=== PATIENT | female | born 1960 | race American Indian/Alaskan Native ===

== ENCOUNTER 2016-10-28 07:41 | Emergency (ER) | payer OTHER ==
[2016-10-28 07:42] VITALS: BMI 30.4
[2016-10-28 07:54] VITALS: BP 169/118; PULSE 111; TEMP 98.6
[2016-10-28] MEDS ORDERED: Albuterol-Ipratrop 3 mg / 0.5 (3 ml) UD ONE (07:55)
[2016-10-28] MEDS ORDERED: Albuterol-Ipratrop 3 mg / 0.5 (3 ml) UD INH STA (08:09)
[2016-10-28] MEDS ORDERED: Sodium Chloride 0.9% 500 ML IV STA (08:09)
[2016-10-28] MEDS ORDERED: Albuterol-Ipratrop 3 mg / 0.5 (3 ml) UD IH STA ×2 (08:09→08:10)
--- NOTE | 2016-10-28 08:12 | ED PDOC ---
HPI: SOB/CHF/COPD Time Seen by Provider: 10/28/16 08:00 Chief Complaint (Nursing): Shortness Of Breath Chief Complaint (Provider): wheezes History Per: Patient History/Exam Limitations: no limitations Onset/Duration Of Symptoms: Days (3) Current Symptoms Are (Timing): Still Present Additional Complaint(s): Wheezes, cough, runny nose, nasal congestion. No headaches. Has bodyaches. Chest tightness, like her asthma. Feels same as her asthma flare. No nausea, vomit, diarrhea, weakness. No dizziness. Neb at home . No abd pain. Past Medical History Reviewed: Nursing Documentation, Vital Signs Vital Signs: Last Vital Signs Temp 98.6 F 10/28/16 08:07 Pulse 111 H 10/28/16 08:07 Resp 24 10/28/16 08:13 BP 169/118 H 10/28/16 08:07 Pulse Ox 95 10/28/16 10:26 - Medical History PMH: Arthritis, Asthma, CAD, HTN Denies: HIV, Chronic Kidney Disease, Rheumatoid Arthritis - Surgical History Surgical History: Tonsillectomy - Family History Family History: States: Unknown Family Hx - Social History Current smoker - smoking cessation education provided: No Alcohol: None Drugs: Denies - Home Medications Home Medications: Ambulatory Orders Medication Instructions Recorded Famotidine [Pepcid] 20 mg PO BID #0 tab 02/21/16 Metoprolol Succinate [Toprol XL] 100 mg PO DAILY #0 tab 02/21/16 Aspirin [Ecotrin] 81 mg PO BID #1 tabec 03/02/16 Docusate [Colace] 100 mg PO BID cap 03/02/16 Valsartan [Diovan] 320 mg PO DAILY #1 tab 03/02/16 hydroCHLOROthiazide [Microzide] 12.5 mg PO DAILY #1 cap 03/02/16 Albuterol Sulfate [Proair Hfa] 0.09 mg IH Q6H PRN #2 inh 10/28/16 Azithromycin [Zithromax] 250 mg PO DAILY 5 Days 10/28/16 predniSONE [predniSONE Tab] 20 mg PO BID 5 Days 10/28/16 - Allergies Allergies/Adverse Reactions: Allergies Allergy/AdvReac Type Severity Reaction Status Date / Time No Known Allergies Allergy Verified 10/28/16 08:04 Review of Systems ROS Statement: Except As Marked, All Systems Reviewed And Found Negative ENT: Positive for: Nose Congestion Respiratory: Positive for: Cough, Shortness of Breath, Sputum, Wheezing Musculoskeletal: Positive for: Other (bodyaches) Physical Exam - Reviewed Nursing Documentation Reviewed: Yes Vital Signs Reviewed: Yes - Physical Exam Appears: Positive for: Uncomfortable Head Exam: Positive for: ATRAUMATIC, NORMAL INSPECTION, NORMOCEPHALIC Skin: Positive for: Normal Color, Warm, DRY Eye Exam: Positive for: EOMI, Normal appearance, PERRL ENT: Positive for: Nasal Congestion. Negative for: Pharyngeal Erythema, Tonsillar Exudate Neck: Positive for: Normal, Painless ROM, Supple Cardiovascular/Chest: Positive for: Regular Rate, Rhythm. Negative for: Edema Respiratory: Positive for: Decreased Breath Sounds, Wheezing (b/l) Gastrointestinal/Abdominal: Positive for: Normal Exam, Bowel Sounds, Soft. Negative for: Tenderness Back: Positive for: Normal Inspection. Negative for: L CVA Tenderness, R CVA Tenderness Extremity: Positive for: Normal ROM. Negative for: Tenderness, Pedal Edema Neurologic/Psych: Positive for: Alert, Oriented - Laboratory Results Result Diagrams: 10/28/16 08:18 10/28/16 08:18 Interpretation Of Abn Labs: 356 glucose. 2.4 lactate - ECG ECG: Positive for: Interpreted By Me, Viewed By Me ECG Rhythm: Positive for: Normal QRS, Normal ST Segment, Sinus Rhythm O2 Sat by Pulse Oximetry: 95 Pulse Ox Interpretation: Normal - Radiology X-Ray: Interpreted by Me, Viewed By Me X-Ray Interpretation: No Acute Disease - Progress ED Course And Treament: 1218: Feels much better. Does not want to stay in the hospital. Will dc. Advised to return if any dyspnea returns. Glucose elevated and likely cause of lactate elevation. AAOx3. Ambulating with no issues. Tolerated po. Disposition - Clinical Impression Clinical Impression: Bronchitis, Asthma, Hyperglycemia - Patient ED Disposition Is Patient to be Admitted: No Counseled Patient/Family Regarding: Studies Performed, Diagnosis, Need For Followup, Rx Given - Disposition Referrals: [facility] [Outside] - 10/29/16 Disposition: Routine/Home Disposition Time: 12:20 Condition: STABLE Additional Instructions: Return if not better in 3 days. Prescriptions: Albuterol Sulfate [Proair Hfa] 0.09 mg IH Q6H PRN #2 inh PRN Reason: Wheezing Azithromycin [Zithromax] 250 mg PO DAILY 5 Days predniSONE [predniSONE Tab] 20 mg PO BID 5 Days Instructions: Acute Bronchitis (ED), Asthma (ED), Diabetic Hyperglycemia (ED) Forms: [facility] ED School/Work Excuse
[2016-10-28 08:15] VITALS: RESP 24
[2016-10-28 08:28] LABS: BASO % 1.1 % (0.0-2.0); EOS # 0.2 K/uL (0.0-0.7); EOS % 5.5 % (0.0-4.0); HEMATOCRIT 43.1 % (34.0-47.0); LYMPH # 1.3 K/uL (1.0-4.3); LYMPH % 30.7 % (20.0-40.0); MEAN CELL VOLUME 92.9 fl (81.0-99.0); MEAN CORPUSCULAR HEMOGLOBIN 30.9 pg (27.0-31.0); MEAN CORPUSCULAR HGB CONC 33.2 g/dL (33.0-37.0); MEAN PLATELET VOLUME 10.4 fl (7.2-11.7); MONO # 0.3 K/uL (0.0-0.8); MONO % 7.1 % (0.0-10.0); NEUT # 2.4 K/uL (1.8-7.0); NEUT % 55.6 % (50.0-75.0); RED CELL DISTRIBUTION WIDTH 14.5 % (11.5-14.5); WHITE BLOOD COUNT 4.4 K/uL (4.8-10.8)
[2016-10-28 08:29] LABS: ABG ALLEN TEST YES; ARTERIAL BLOOD GAS HCO3 26.2 mmol/L (21-28); ARTERIAL BLOOD GAS PH 7.44 (7.35-7.45); ARTERIAL BLOOD GAS PO2 72 mm/Hg (80-100)
[2016-10-28 08:58] LABS: ALB/GLOB RATIO 1.3 (1.0-2.1); ALKALINE PHOSPHATASE 103 U/L (38-126); ALT/SGPT 42 U/L (9-52); AST/SGOT 28 U/L (14-36); BILIRUBIN,TOTAL 0.7 mg/dl (0.2-1.3); BLOOD UREA NITROGEN 18 mg/dl (7-17); CALCIUM 9.6 mg/dL (8.4-10.2); CARBON DIOXIDE 25 mmol/L (22-30); CHLORIDE 102 mmol/L (98-107); GFR AFRICAN-AMERICAN > 60; GLUCOSE,RANDOM 356 mg/dL (65-105); POTASSIUM 3.5 MMOL/L (3.6-5.0); SODIUM 141 mmol/l (132-148); TOTAL PROTEIN 7.4 G/DL (6.3-8.2)
[2016-10-28 09:12] LABS: PARTIAL THROMBOPLASTIN TIME 27.4 SECONDS (23.3-32.5)
[2016-10-28] MEDS ORDERED: Sodium Chloride 0.9% 1,000 ML IV STA (10:18)
[2016-10-28 13:06] VITALS: O2SAT 99
--- NOTE | 2016-10-29 08:36 | CARD ---
APPROVED REPORT EKG Measurement Heart [id number] <Conclusion> Sinus rhythm with fusion complexes Left axis deviation Moderate voltage criteria for LVH, may be normal variant Nonspecific ST abnormality Abnormal ECG
--- NOTE | 2016-11-26 17:30 | RAD ---
PROCEDURE: Single-view chest. HISTORY: dyspnea COMPARISON: 02/10/2016.. TECHNIQUE: Technique: Single view portable erect @ 08:15. FINDINGS: No active pulmonary disease. No pulmonary nodules, masses or infiltrates. No evidence of acute, significant cardiovascular disease. No significant pleural, osseous or subdiaphragmatic abnormalities. IMPRESSION: No active disease. No acute/significant interval changes.
== END 2016-10-28 13:06 | disposition home or self-care (01) ==
LOC: H.ER 07:41
DX: J45.909 Unspecified asthma, uncomplicated (principal); R73.9 Hyperglycemia, unspecified; I25.10 Atherosclerotic heart disease of native coronary artery without angina pectoris; I10 Essential (primary) hypertension; Z79.82 Long term (current) use of aspirin

== ENCOUNTER 2017-09-26 06:30 | Inpatient (IN) | payer OTHER ==
[2017-09-26 06:31] VITALS: BMI 30.4
--- NOTE | 2017-09-26 07:42 | ED PDOC ---
HPI: Chest Pain Time Seen by Provider: 09/26/17 07:14 Chief Complaint (Nursing): Chest Pain Chief Complaint (Provider): Chest Pain History Per: Patient History/Exam Limitations: no limitations Current Symptoms Are (Timing): Still Present Associated Symptoms: Other (Shortness of breath) Additional Complaint(s): 57 y/o female with past medical history of asthma presents to the ED complaining of mid chest pain associated with shortness of breath x 3 hours. Reports mild cough as she is recovering from bronchitis. Denies fever or any further medical complaints. --No family history of CAD --No history or risk factors for PE or DVT Past Medical History Vital Signs: Last Vital Signs Temp 97.8 F 09/26/17 06:40 Pulse 57 L 09/26/17 06:40 Resp 17 09/26/17 06:40 BP 165/91 H 09/26/17 06:40 Pulse Ox 98 09/26/17 10:38 - Medical History PMH: Arthritis, Asthma, Bronchitis, CAD, HTN Denies: HIV, Chronic Kidney Disease, Rheumatoid Arthritis Other PMH: osteoarthritis - Surgical History Surgical History: Tonsillectomy Other surgeries: Knee surgery - Family History Family History: States: Unknown Family Hx - Social History Current smoker - smoking cessation education provided: No Alcohol: Social Drugs: Denies - Home Medications Home Medications: Ambulatory Orders Medication Instructions Recorded Famotidine [Pepcid] 20 mg PO BID #0 tab 02/21/16 Metoprolol Succinate [Toprol XL] 100 mg PO DAILY #0 tab 02/21/16 Aspirin [Ecotrin] 81 mg PO BID #1 tabec 03/02/16 Docusate [Colace] 100 mg PO BID cap 03/02/16 Valsartan [Diovan] 320 mg PO DAILY #1 tab 03/02/16 hydroCHLOROthiazide [Microzide] 12.5 mg PO DAILY #1 cap 03/02/16 Albuterol Sulfate [Proair Hfa] 0.09 mg IH Q6H PRN #2 inh 10/28/16 Azithromycin [Zithromax] 250 mg PO DAILY 5 Days tab 10/28/16 predniSONE [predniSONE Tab] 20 mg PO BID 5 Days tab 10/28/16 - Allergies Allergies/Adverse Reactions: Allergies Allergy/AdvReac Type Severity Reaction Status Date / Time No Known Allergies Allergy Verified 10/28/16 08:04 Review of Systems ROS Statement: Except As Marked, All Systems Reviewed And Found Negative (A sper HPI,otherwise negative) Constitutional: Negative for: Fever Cardiovascular: Positive for: Chest Pain Respiratory: Positive for: Shortness of Breath Physical Exam - Reviewed Nursing Documentation Reviewed: Yes Vital Signs Reviewed: Yes - Physical Exam Appears: Positive for: Non-toxic, Uncomfortable (Mildly uncomfortable) Head Exam: Positive for: ATRAUMATIC, NORMAL INSPECTION, NORMOCEPHALIC Skin: Positive for: Normal Color, Warm, Dry Eye Exam: Positive for: EOMI, Normal appearance, PERRL ENT: Positive for: Normal ENT Inspection Neck: Positive for: Normal, Painless ROM, Supple Cardiovascular/Chest: Positive for: Regular Rate, Rhythm. Negative for: Murmur Respiratory: Positive for: Normal Breath Sounds. Negative for: Accessory Muscle Use, Respiratory Distress Gastrointestinal/Abdominal: Positive for: Normal Exam, Bowel Sounds, Soft. Negative for: Tenderness Back: Positive for: Normal Inspection Extremity: Positive for: Normal ROM. Negative for: Deformity Neurologic/Psych: Positive for: Alert, Oriented (x3) - Laboratory Results Result Diagrams: 09/26/17 08:51 09/26/17 08:51 - ECG ECG Rhythm: Positive for: Sinus Rhythm (Normal Sinus Rhythm ar 90bpm). Negative for: ST/T Changes (ST/T elevations or depressions) O2 Sat by Pulse Oximetry: 98 (RA) Pulse Ox Interpretation: Normal Medical Decision Making Medical Decision Making: Time: 07:44 Initial Impression: Chest pain Plan: CMP Troponin I CBC w/ differential Chest x-ray Reevalaution Time: 09:30 Chest x-ray FINDINGS: LUNGS: No active pulmonary disease. PLEURA: No significant pleural effusion identified, no pneumothorax apparent. CARDIOVASCULAR: Borderline cardiomegaly stable. No pulmonary derangement identified. Cardiac silhouette limited in evaluation due to from finding. OSSEOUS STRUCTURES: No significant abnormalities. VISUALIZED UPPER ABDOMEN: Normal. OTHER FINDINGS: None. IMPRESSION: No acute interval cardiopulmonary disease appreciable. Time: 09:45 --Patient was administered Nitro and Aspirin but still has pain --Patient connie be admitted to Dr. Lara --Dr. Lara has agreed to the admission and has a consult from cardiology Scribe Attestation: Documented by Dawood Beaver acting as a scribe for Ely Garcia MD. Scribe Attestation: All medical record entries made by the Scribe were at my direction and personally dictated by me. I have reviewed the chart and agree that the record accurately reflects my personal performance of the history, physical exam, medical decision making, and the department course for this patient. I have also personally directed, reviewed, and agree with the discharge instructions and disposition. Disposition - Disposition
[2017-09-26 09:03] LABS: BASO % 0.8 % (0.0-2.0); EOS # 0.2 K/uL (0.0-0.7); HEMOGLOBIN 14.6 g/dL (12.0-16.0); LYMPH # 1.8 K/uL (1.0-4.3); LYMPH % 35.6 % (20.0-40.0); MEAN CELL VOLUME 91.9 fl (81.0-99.0); MEAN CORPUSCULAR HEMOGLOBIN 31.5 pg (27.0-31.0); MEAN CORPUSCULAR HGB CONC 34.2 g/dL (33.0-37.0); MEAN PLATELET VOLUME 10.5 fl (7.2-11.7); MONO # 0.4 K/uL (0.0-0.8); MONO % 8.1 % (0.0-10.0); NEUT # 2.6 K/uL (1.8-7.0); NEUT % 51.5 % (50.0-75.0); NRBC % 0.1 % (0.0-0.0); RBC 4.63 Mil/uL (3.80-5.20); RED CELL DISTRIBUTION WIDTH 14.1 % (11.5-14.5); WHITE BLOOD COUNT 5.1 K/uL (4.8-10.8)
[2017-09-26 09:07] LABS: ALB/GLOB RATIO 1.3 (1.0-2.1); ALBUMIN 4.4 g/dL (3.5-5.0); ALT/SGPT 36 U/L (9-52); AST/SGOT 22 U/L (14-36); BLOOD UREA NITROGEN 17 mg/dl (7-17); GFR AFRICAN-AMERICAN > 60; GFR NON-AFRICAN AMERICAN > 60
--- NOTE | 2017-09-26 09:32 | RAD ---
HISTORY: cp COMPARISON: Portable chest 10/28/2016. FINDINGS: LUNGS: No active pulmonary disease. PLEURA: No significant pleural effusion identified, no pneumothorax apparent. CARDIOVASCULAR: Borderline cardiomegaly stable. No pulmonary derangement identified. Cardiac silhouette limited in evaluation due to from finding. OSSEOUS STRUCTURES: No significant abnormalities. VISUALIZED UPPER ABDOMEN: Normal. OTHER FINDINGS: None. IMPRESSION: No acute interval cardiopulmonary disease appreciable.
--- NOTE | 2017-09-26 23:55 | CARD ---
APPROVED REPORT EKG Measurement Heart [id number] <Conclusion> Sinus bradycardia Moderate voltage criteria for LVH, may be normal variant Borderline ECG
--- NOTE | 2017-09-27 01:40 | CON ---
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 She also has a history of bronchitis, present because of chest pain, this is left-sided, sharp, worsening on deep breathing, and is associated with chest tightness. The patient was evaluated by Dr. 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 The patient has a history of bilateral total knee replacement in 2014 and 2015. She did have bilateral foot surgery involving bunions. The patient denies any history of DVT in the past. The patient at this time has some severe chest discomfort. SOCIAL HISTORY: The patient is nonsmoker. 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 MEDICATIONS: The patient's home medications include metformin 500 mg twice a day, Diovan and hydrochlorothiazide 320/25 mg once a day, Januvia 100 mg daily, and Lopressor 100 mg daily. REVIEW OF SYSTEMS: No fever or chills. No dizziness or syncope. No nausea or vomiting. PHYSICAL EXAMINATION: GENERAL: The patient is a middle-age female who does not appear to be in any acute distress. VITAL SIGNS: Blood pressure 165/91, heart rate 57, temperature 97.8, and respirations 17. HEENT: Normocephalic. NECK: No JVD. CHEST: Clear. HEART: S1 and S2 regular. ABDOMEN: Soft. EXTREMITIES: No edema. DIAGNOSTIC DATA: EKG revealed sinus bradycardia at a rate of 57, LVH by voltage. LABORATORY DATA: SMA-7: Sodium 143, potassium 4.3, chloride 101, CO2 of 29, glucose 176, BUN 17, and creatinine 0.7. One set of troponin is negative. CBC; WBC 5.1, hemoglobin 14.6, hematocrit 42.5, and platelet count 216,000. Chest x-ray was unremarkable. ASSESSMENT: 1. Chest pain, rule out myocardial infarction. 2. Rule out pulmonary infarction. 3. Hypertension. 4. Diabetes mellitus. 5. History of bilateral total knee replacement in 2014 and 2015. RECOMMENDATIONS: Admit the patient to telemetry and start aspirin at 81 mg once a day, and Lipitor 20 mg orally once a day. Monitor daily EKGs and serial cardiac enzyme, obtain stat d-dimer, and schedule the patient for an echocardiogram. Goldy Drew MD
[2017-09-27 05:51] LABS: INR 1.1 (0.9-1.2); PARTIAL THROMBOPLASTIN TIME 31.4 Seconds (25.6-37.1)
[2017-09-27 06:03] LABS: ALB/GLOB RATIO 1.3 (1.0-2.1); ALT/SGPT 35 U/L (9-52); AST/SGOT 16 U/L (14-36); BLOOD UREA NITROGEN 18 mg/dl (7-17); CALCIUM 9.6 mg/dL (8.4-10.2); GFR AFRICAN-AMERICAN > 60; GFR NON-AFRICAN AMERICAN > 60; HDL CHOLESTEROL 50 MG/DL (30-70)
[2017-09-27 06:09] LABS: LDL CHOLESTEROL 50 mg/dL (0-129)
[2017-09-27 06:16] LABS: BASO % 0.8 % (0.0-2.0); EOS # 0.2 K/uL (0.0-0.7); EOS % 3.8 % (0.0-4.0); HEMOGLOBIN 14.9 g/dL (12.0-16.0); LYMPH # 1.8 K/uL (1.0-4.3); LYMPH % 39.2 % (20.0-40.0); MEAN CELL VOLUME 93.5 fl (81.0-99.0); MEAN CORPUSCULAR HEMOGLOBIN 31.8 pg (27.0-31.0); MEAN PLATELET VOLUME 10.1 fl (7.2-11.7); MONO # 0.4 K/uL (0.0-0.8); MONO % 8.9 % (0.0-10.0); NEUT # 2.1 K/uL (1.8-7.0); NEUT % 47.3 % (50.0-75.0); NRBC % 0.2 % (0.0-0.0); RBC 4.67 Mil/uL (3.80-5.20); RED CELL DISTRIBUTION WIDTH 14.6 % (11.5-14.5); T4 7.81 ug/dl (5.5-11.0); WHITE BLOOD COUNT 4.5 K/uL (4.8-10.8)
[2017-09-27 06:42] LABS: SQUAMOUS EPITHIAL 1 /hpf (0-5); URINE BILIRUBIN NEGATIVE (NEGATIVE); URINE BLOOD NEGATIVE (NEGATIVE); URINE CLARITY CLEAR (Clear); URINE COLOR YELLOW (YELLOW); URINE GLUCOSE (UA) >=500 mg/dL (Normal); URINE LEUKOCYTE ESTERASE NEG Leu/uL (Negative); URINE PROTEIN NEGATIVE (NEGATIVE); URINE UROBILINOGEN 0.2-1.0 mg/dL (0.2-1.0)
[2017-09-27] MEDS ORDERED: Enoxaparin 80 mg Syringe SC SCH (09:00)
--- NOTE | 2017-09-27 10:38 | US ---
PROCEDURE: Duplex ultrasound of the carotid and vertebral arteries. HISTORY: chest pain COMPARISON: None available. TECHNIQUE: Grayscale and duplex Doppler evaluation of the cervical carotid and vertebral arteries were performed. The common carotid, carotid bifurcations and cervical ICA and proximal ECA were evaluated. The vertebral arteries were evaluated for gross patency and direction. FINDINGS: RIGHT CAROTID ARTERIES: Common Carotid Artery: Normal. Maximal flow velocity of 59 cm/s. Carotid Bifurcation: Mild noncalcific plaque. Internal Carotid Artery:Normal. Maximal flow velocity of 81 cm/s. External Carotid Artery (proximal branches): Normal. Maximal flow velocity of 62 cm/s. ICA/CCA Ratio: 1.4 LEFT CAROTID ARTERIES: Common Carotid Artery: Normal. Maximal flow velocity of 67 cm/s. Carotid Bifurcation: Mild noncalcific plaque. Internal Carotid Artery:Normal. Maximal flow velocity of 103 cm/s. External Carotid Artery (proximal branches): Normal. Maximal flow velocity of 54 cm/s. ICA/CCA Ratio: 1.5 VERTEBRAL ARTERIES: Right Vertebral Artery: Patent. Antegrade flow. Left Vertebral Artery: Patent. Antegrade flow. OTHER FINDINGS: None. IMPRESSION: Per NASCET criteria, less than 50 percent stenosis of the internal carotid arteries bilaterally.
--- NOTE | 2017-09-27 12:02 | CARD ---
APPROVED REPORT EXAM: Two-dimensional and M-mode echocardiogram with Doppler and color Doppler. Other Information Quality : GoodRhythm : NSR INDICATION Chest Pain 2D DIMENSIONS IVSd1.40 (0.7-1.1cm)LVDd4.81 (3.9-5.9cm) LVOT Diameter2.08 (1.8-2.4cm)PWd1.07 (0.7-1.1cm) IVSs1.15 (0.8-1.2cm)LVDs3.77 (2.5-4.0cm) FS (%) 21.6 %PWs1.49 (0.8-1.2cm) LVEF (%)50.0 (>50%) M-Mode DIMENSIONS Left Atrium (MM)4.29 (2.5-4.0cm)IVSd1.03 (0.7-1.1cm) Aortic Root3.26 (2.2-3.7cm)LVDd5.79 (4.0-5.6cm) Aortic Cusp Exc.2.18 (1.5-2.0cm)PWd0.85 (0.7-1.1cm) IVSs1.47 cmFS (%) 31 % LVDs4.00 (2.0-3.8cm)PWs1.29 cm Mitral Valve MV E Icvexogd85.7cm/sMV DECEL [id number] A Wosmjsrj01.4cm/s MV IFR112pfI/A ratio0.4MVA (PHT)1.83cm2 TDI Lateral E' Peak V4.32cm/sMedial E' Peak V5.79cm/sE/Lateral E'8.3 E/Medial E'6.2 Pulmonary Valve PV Peak Ddtgpeyp963.7cm/s LEFT VENTRICLE The left ventricle is normal size. There is mild concentric left ventricular hypertrophy. Left ventricle ejection fraction is borderline. Mild inferior wall hypokinesis Transmitral Doppler flow pattern is Grade I-abnormal relaxation pattern. RIGHT VENTRICLE The right ventricle is normal size. There is normal right ventricular wall thickness. The right ventricular systolic function is normal. ATRIA The left atrium is borderline dilated. The right atrium size is normal. AORTIC VALVE The aortic valve is normal in structure. No aortic regurgitation is present. There is no aortic valvular stenosis. MITRAL VALVE The mitral valve is normal in structure. There is no mitral valve stenosis. There is no mitral valve regurgitation noted. TRICUSPID VALVE The tricuspid valve is normal in structure. There is no tricuspid valve regurgitation noted. PULMONIC VALVE The pulmonary valve is normal in structure. There is no pulmonic valvular regurgitation. GREAT VESSELS The aortic root is normal in size. The IVC is normal in size and collapses >50% with inspiration. PERICARDIAL EFFUSION There is a trace circumferential pericardial effusion. <Conclusion> The left ventricle is normal size. There is mild concentric left ventricular hypertrophy. Left ventricle ejection fraction is borderline. Mild inferior wall hypokinesis Transmitral Doppler flow pattern is Grade I-abnormal relaxation pattern.
--- NOTE | 2017-09-27 13:13 | CP.PCM.HP ---
History of Present Illness - History of Present Illness History of Present Illness: CC: Chest pain. 57 y/o F, Hx of HTN, Asthma, brought to ER [facility], [place] to be evaluated for increased Chest pain, onset 3 hrs [employer]. Pt taking Diovan, Lopressor and no relief. Pt was seen in the ED on 09/26/16 c/o of Midsternal chest pain, pain was continue, throbbing, moderate severity 8:10, associated to mild SOB and mild productive cough, intermittent, with scant white thin sputum. Pt states CP stated at 4 AM and while riding bus into work CP worsening. Worsening symptoms: Hx of CAD. As per PT, recovering from recent Bronchitis. Aggravated factor: Inspiration. Pt denied: Fever, chills, syncope, dizziness, LOC, n/v/d, abdominal pain, urinary symptoms, sick contact, recent travel out of [facility]. Echo: The LV normal in size. Mild concentric LVH. LVE traction is borderline. CT Chest: Unremarkable CT pulmonary angiogram, no PE. Carotid U-S: Per NASCET criteria, less than 50% stenosis of the internal carotid arteries b/l. Present on Admission - Present on Admission Any Indicators Present on Admission: No Review of Systems - Constitutional Constitutional: Other (negative) - EENT Eyes: Other (negative) Ears: Other (negative) Nose/Mouth/Throat: Other (negative) - Cardiovascular Cardiovascular: Chest Pain - Respiratory Respiratory: Cough, Dyspnea, Pain on Inspiration, Excessive Mucous Production - Gastrointestinal Gastrointestinal: Other (negative) - Genitourinary Genitourinary: Other (negative) - Musculoskeletal Musculoskeletal: Arthralgias - Integumentary Integumentary: Other (negative) - Neurological Neurological: Other (negative) - Psychiatric Psychiatric: Other (negative) - Endocrine Endocrine: Other (negative) - Hematologic/Lymphatic Hematologic: Other (negative) Past Patient History - Infectious Disease Hx of Infectious Diseases: None - Tetanus Immunizations Tetanus Immunization: Unknown - Past Medical History & Family History Past Medical History?: Yes Pertinent Family History: Unknown - Past Social History Smoking Status: Never Smoked Alcohol: None Drugs: Denies Home Situation {Lives}: With Family - CARDIAC Hx Cardiac Disorders: Yes Hx Hypertension: Yes - PULMONARY Hx Respiratory Disorders: Yes Hx Asthma: Yes Hx Bronchitis: Yes - NEUROLOGICAL Hx Neurological Disorder: No - HEENT Hx HEENT Problems: No - RENAL Hx Chronic Kidney Disease: No - ENDOCRINE/METABOLIC Hx Endocrine Disorders: Yes Hx Diabetes Mellitus Type 2: Yes - HEMATOLOGICAL/ONCOLOGICAL Hx Blood Disorders: No Hx Human Immunodeficiency Virus (HIV): No - INTEGUMENTARY Hx Dermatological Problems: No - MUSCULOSKELETAL/RHEUMATOLOGICAL Hx Musculoskeletal Disorders: Yes Hx Arthritis: Yes Hx Falls: No Hx Rheumatoid Arthritis: No - GASTROINTESTINAL Hx Gastrointestinal Disorders: No - GENITOURINARY/GYNECOLOGICAL Hx Genitourinary Disorders: Yes Other/Comment: BSO and MISA due To Endometriosis - 2009 - PSYCHIATRIC Hx Psychophysiologic Disorder: No Hx Substance Use: No - SURGICAL HISTORY Hx Surgeries: Yes Hx Joint Replacement: Yes (R and L TKR) Hx Tonsillectomy: Yes - ANESTHESIA Hx Anesthesia: Yes Hx Anesthesia Reactions: No Hx Malignant Hyperthermia: No Meds Allergies/Adverse Reactions: Allergies Allergy/AdvReac Type Severity Reaction Status Date / Time No Known Allergies Allergy Verified 10/28/16 08:04 Physical Exam - Constitutional Appears: No Acute Distress - Head Exam Head Exam: NORMAL INSPECTION - Eye Exam Eye Exam: PERRL - ENT Exam ENT Exam: Normal Exam - Neck Exam Neck exam: Positive for: Normal Inspection - Respiratory Exam Respiratory Exam: NORMAL BREATHING PATTERN - Cardiovascular Exam Cardiovascular Exam: REGULAR RHYTHM - GI/Abdominal Exam GI & Abdominal Exam: Normal Bowel Sounds, Soft - Extremities Exam Additional comments: Deformities b/l hands 2nd to O/A - Back Exam Back exam: NORMAL INSPECTION - Neurological Exam Neurological exam: Alert, Oriented x3 - Psychiatric Exam Psychiatric exam: Normal Mood - Skin Skin Exam: Warm Results - Vital Signs Recent Vital Signs: Last Vital Signs Temp 98.8 F 09/27/17 12:00 Pulse 62 09/27/17 12:00 Resp 20 09/27/17 12:00 BP 108/69 09/27/17 12:00 Pulse Ox 95 09/27/17 12:00 reviewed Piedad - Labs Result Diagrams: 09/27/17 04:20 09/27/17 04:20 Labs: Laboratory Results - last 24 hr 09/26/17 09/26/17 09/27/17 18:10 18:36 04:20 WBC RBC Hgb Hct MCV MCH MCHC RDW Plt Count MPV Neut % (Auto) Lymph % (Auto) [place] % (Auto) Eos % (Auto) Baso % (Auto) Neut # (Auto) Lymph # (Auto) [place] # (Auto) Eos # (Auto) Baso # (Auto) PT INR APTT D-Dimer, Quantitative 165 Sodium 143 Potassium 4.0 Chloride 104 Carbon Dioxide 26 Anion Gap 17 BUN 18 H Creatinine 0.6 L Est GFR ( Amer) > 60 Est GFR (Non-Af Amer) > 60 POC Glucose (mg/dL) Random Glucose 171 H Hemoglobin A1c Calcium 9.6 Total Bilirubin 0.8 AST 16 ALT 35 Alkaline Phosphatase 83 Troponin I < 0.0120 < 0.0120 Total Protein 7.2 Albumin 4.0 Globulin 3.1 Albumin/Globulin Ratio 1.3 Triglycerides 215 H D Cholesterol 188 LDL Cholesterol Direct 50 HDL Cholesterol 50 Thyroxine (T4) 7.81 TSH 3rd Generation 1.35 Urine Color Urine Clarity Urine pH Ur Specific [place] Urine Protein Urine Glucose (UA) Urine Ketones Urine Blood Urine Nitrate Urine Bilirubin Urine Urobilinogen Ur Leukocyte Esterase Urine RBC (Auto) Urine Microscopic WBC Ur Squamous Epith Cells 09/27/17 09/27/17 09/27/17 04:20 04:20 04:20 WBC 4.5 L RBC 4.67 Hgb 14.9 Hct 43.7 MCV 93.5 MCH 31.8 H MCHC 34.0 RDW 14.6 H Plt Count 206 MPV 10.1 Neut % (Auto) 47.3 L Lymph % (Auto) 39.2 [place] % (Auto) 8.9 Eos % (Auto) 3.8 Baso % (Auto) 0.8 Neut # (Auto) 2.1 Lymph # (Auto) 1.8 [place] # (Auto) 0.4 Eos # (Auto) 0.2 Baso # (Auto) 0.0 PT 12.0 INR 1.1 APTT 31.4 D-Dimer, Quantitative Sodium Potassium Chloride Carbon Dioxide Anion Gap BUN Creatinine Est GFR ( Amer) Est GFR (Non-Af Amer) POC Glucose (mg/dL) Random Glucose Hemoglobin A1c 9.9 H Calcium Total Bilirubin AST ALT Alkaline Phosphatase Troponin I Total Protein Albumin Globulin Albumin/Globulin Ratio Triglycerides Cholesterol LDL Cholesterol Direct HDL Cholesterol Thyroxine (T4) TSH 3rd Generation Urine Color Urine Clarity Urine pH Ur Specific [place] Urine Protein Urine Glucose (UA) Urine Ketones Urine Blood Urine Nitrate Urine Bilirubin Urine Urobilinogen Ur Leukocyte Esterase Urine RBC (Auto) Urine Microscopic WBC Ur Squamous Epith Cells 09/27/17 09/27/17 09/27/17 06:05 06:30 11:30 WBC RBC Hgb Hct MCV MCH MCHC RDW Plt Count MPV Neut % (Auto) Lymph % (Auto) [place] % (Auto) Eos % (Auto) Baso % (Auto) Neut # (Auto) Lymph # (Auto) [place] # (Auto) Eos # (Auto) Baso # (Auto) PT INR APTT D-Dimer, Quantitative Sodium Potassium Chloride Carbon Dioxide Anion Gap BUN Creatinine Est GFR ( Amer) Est GFR (Non-Af Amer) POC Glucose (mg/dL) 166 H 218 H Random Glucose Hemoglobin A1c Calcium Total Bilirubin AST ALT Alkaline Phosphatase Troponin I Total Protein Albumin Globulin Albumin/Globulin Ratio Triglycerides Cholesterol LDL Cholesterol Direct HDL Cholesterol Thyroxine (T4) TSH 3rd Generation Urine Color Yellow Urine Clarity Clear Urine pH 5.0 Ur Specific [place] 1.021 Urine Protein Negative Urine Glucose (UA) >=500 Urine Ketones Negative Urine Blood Negative Urine Nitrate Negative Urine Bilirubin Negative Urine Urobilinogen 0.2-1.0 Ur Leukocyte Esterase Neg Urine RBC (Auto) 1 Urine Microscopic WBC 1 Ur Squamous Epith Cells 1 reviewed J.P. - EKG Data EKG comments: reviewed J.P. - Impressions Impression: Echo: Reviewed J.P. Carotid U-S Reviewed. - Imaging and Cardiology Chest x-ray Status: Report reviewed by me (Piedad) CT scan - chest Status: Report reviewed by me (Piedad) Assessment & Plan (1) Chest pain Status: Acute Priority: High (2) Hypertension Status: Chronic Priority: Medium (3) Hyperglycemia Status: Chronic Priority: Medium (4) DM type 2 (diabetes mellitus, type 2) Status: Chronic Priority: Medium - Assessment and Plan (Free Text) Plan: F/U Myocardial Perf. Continue asa, Diovan, Lopressor, Hydrodiuril, Lipitor and rest of Tx, Cardiology consult appreciated. - Date & Time Date: 09/27/17 Time: 09:00
[2017-09-27] MEDS ORDERED: Sodium Chloride 0.9% 100 ML ONE (14:25)
[2017-09-27] MEDS ORDERED: Iodixanol 320 MG/ML 100 ML BOTTLE IV ONE (14:25)
--- NOTE | 2017-09-27 15:19 | CT ---
PROCEDURE: CT Chest with contrast (Pulmonary Angiogram) HISTORY: chest pain COMPARISON: None available. TECHNIQUE: Axial computed tomography images were obtained of the chest in the pulmonary arterial phase of enhancement. Coronal and sagittal reformatted images were created and reviewed. Intravenous contrast dose: 99 mL Visipaque 320 Radiation dose: Total exam DLP = 459.6 mGy-cm. This CT exam was performed using one or more of the following dose reduction techniques: Automated exposure control, adjustment of the mA and/or kV according to patient size, and/or use of iterative reconstruction technique. FINDINGS: PULMONARY ARTERIES: Unremarkable. No pulmonary embolism. AORTA: No acute findings. No thoracic aortic aneurysm. LUNGS: Bibasilar atelectasis/scarring. No nodule, mass or pulmonary consolidation. PLEURAL SPACES: Unremarkable. No effusion or pneumothorax. HEART: Unremarkable. No cardiomegaly. No significant pericardial effusion. LYMPH NODES: No lymphadenopathy. BONES, CHEST WALL: Degenerative changes. No fracture or destructive lesion OTHER FINDINGS: Unremarkable. IMPRESSION: Unremarkable CT pulmonary angiogram. No pulmonary embolus.
--- NOTE | 2017-09-27 21:11 | PN ---
DATE: SUBJECTIVE: The patient's chest discomfort has improved. She denies any shortness of breath. PHYSICAL EXAMINATION: VITAL SIGNS: Blood pressure 143/83, heart rate 63, temperature 98.4, and respirations 20. HEENT: Normocephalic. CHEST: Clear. HEART: S1 and S2 regular. ABDOMEN: Soft. EXTREMITIES: No edema. LABORATORY DATA: SMA-7; sodium 143, potassium 4.0, chloride 104, CO2 of 26, glucose 171, BUN 18, and creatinine 0.6. Two sets of troponins are negative. Today's hemoglobin and hematocrit 14.9 and 43.7, white count 4.5, and platelet count . D-dimer is within normal limits. Chest CT scan with contrast unremarkable study. Echocardiac study revealed normal left ventricular size, mild concentric LVH with borderline ejection fraction, and mild inferior wall hypokinesis. ASSESSMENT: 1. Atypical chest pain, myocardial infarction ruled out. 2. Hypertension. 3. Hyperlipidemia. 4. Diabetes mellitus. RECOMMENDATIONS: Continue aspirin 81 mg once a day, Diovan 320 mg once a day, twice a day, hydrochlorothiazide 25 mg once a day, Lipitor 20 mg once a day, and Lopressor 100 mg once a day. Discontinue Lovenox and the patient is scheduled for Myoview stress test tomorrow. Goldy Drew MD
--- NOTE | 2017-09-28 15:22 | CP.PCM.PN ---
Subjective - Date & Time of Evaluation Date of Evaluation: 09/28/17 Time of Evaluation: 14:00 - Subjective Subjective: F/U CP. Continue with mild CP, L lateral chest wall. No SOB. Objective - Vital Signs/Intake and Output Vital Signs (last 24 hours): Temp Pulse Resp BP Pulse Ox 97.8 F 64 18 150/80 96 09/28/17 14:49 09/28/17 14:49 09/28/17 11:55 09/28/17 14:49 09/28/17 11:55 - Medications Medications: Current Medications Aspirin (Aspirin Chewable) 81 mg PO DAILY [facility] Last Admin: 09/28/17 12:52 Dose: 81 mg Atorvastatin Calcium (Lipitor) 20 mg PO DAILY [facility] Last Admin: 09/28/17 12:51 Dose: 20 mg Azithromycin (Zithromax) 500 mg PO DAILY [facility] PRN Reason: Protocol Hydrochlorothiazide (Hydrodiuril) 25 mg PO DAILY [facility] Last Admin: 09/28/17 12:53 Dose: 25 mg Metformin HCl (Glucophage) 1,000 mg PO BIDAC [facility] Last Admin: 09/28/17 07:30 Dose: Not Given Metoprolol Tartrate (Lopressor) 100 mg PO DAILY [facility] Last Admin: 09/28/17 12:53 Dose: 100 mg Sitagliptin Phosphate (Januvia) 100 mg PO DAILY [facility] Last Admin: 09/28/17 12:53 Dose: 100 mg Valsartan (Diovan) 320 mg PO DAILY [facility] Last Admin: 09/28/17 12:52 Dose: 320 mg - Labs Labs: 09/27/17 04:20 09/27/17 04:20 PT 12.0 Seconds (9.8-13.1) 09/27/17 04:20 INR 1.1 (0.9-1.2) 09/27/17 04:20 APTT 31.4 Seconds (25.6-37.1) 09/27/17 04:20 - Constitutional Appears: No Acute Distress, Chronically Ill - Head Exam Head Exam: NORMAL INSPECTION - Eye Exam Eye Exam: PERRL - ENT Exam ENT Exam: Normal Exam - Neck Exam Neck Exam: Normal Inspection - Respiratory Exam Respiratory Exam: NORMAL BREATHING PATTERN - Cardiovascular Exam Cardiovascular Exam: REGULAR RHYTHM - GI/Abdominal Exam GI & Abdominal Exam: Soft, Normal Bowel Sounds - Extremities Exam Additional comments: Deformities b/l hands 2nd to O/A - Back Exam Back Exam: NORMAL INSPECTION - Neurological Exam Neurological Exam: Alert, Oriented x3 - Psychiatric Exam Psychiatric exam: Normal Mood - Skin Skin Exam: Warm Assessment and Plan (1) Chest pain Status: Acute (2) Hypertension Status: Chronic (3) Hyperglycemia Status: Chronic (4) DM type 2 (diabetes mellitus, type 2) Status: Chronic - Assessment and Plan (Free Text) Plan: F/U Stress test from today, continue with Zithromax and current Tx.
--- NOTE | 2017-09-28 20:10 | PN ---
DATE: SUBJECTIVE: The patient denies any chest pain or shortness of breath. PHYSICAL EXAMINATION: VITAL SIGNS: Blood pressure 150/80, heart rate 64, temperature 97.8, and respirations 18. HEENT: Normocephalic. CHEST: Clear. HEART: S1 and S2 regular. EXTREMITIES: Significant arthritic deformities in both hands. LABORATORY DATA: Today's blood sugar is [address] scan unremarkable CT pulmonary angiogram. ASSESSMENT: 1. Chest pain, myocardial infarction is ruled out. 2. Hypertension and diabetes mellitus. 3. Hyperlipidemia. 4. Osteoarthritis. RECOMMENDATIONS: Continue current aspirin 81 mg once a day, Diovan at 320 mg once a day, 1 g twice a day, hydrochlorothiazide 25 mg once a day, Januvia 100 mg once a day, Lipitor 20 mg once a day, Lopressor 100 mg once a day, and Zithromax 100 mg daily. I will follow the Myoview stress test that was performed today. Goldy Drew MD
[2017-09-29] MEDS: Enoxaparin 40 mg Syringe SC SCH (16:19)
--- NOTE | 2017-09-29 18:23 | CP.PCM.PN ---
Subjective - Date & Time of Evaluation Date of Evaluation: 09/29/17 Time of Evaluation: 12:10 - Subjective Subjective: F/U CP. No SOB, minimal lateral chest wall pain, minimal with deep breathing. Objective - Vital Signs/Intake and Output Vital Signs (last 24 hours): Temp Pulse Resp BP Pulse Ox 98.5 F 78 16 110/74 96 09/29/17 16:00 09/29/17 16:00 09/29/17 16:00 09/29/17 16:00 09/29/17 16:00 - Medications Medications: Current Medications Aspirin (Aspirin Chewable) 81 mg PO DAILY [facility] Last Admin: 09/29/17 08:55 Dose: 81 mg Atorvastatin Calcium (Lipitor) 20 mg PO DAILY [facility] Last Admin: 09/29/17 08:57 Dose: 20 mg Azithromycin (Zithromax) 500 mg PO DAILY [facility] PRN Reason: Protocol Last Admin: 09/29/17 08:57 Dose: 500 mg Enoxaparin Sodium (Lovenox) 40 mg SC DAILY [facility] PRN Reason: Protocol Last Admin: 09/29/17 16:19 Dose: 40 mg Hydrochlorothiazide (Hydrodiuril) 25 mg PO DAILY [facility] Last Admin: 09/29/17 08:56 Dose: 25 mg Metformin HCl (Glucophage) 1,000 mg PO BIDAC [facility] Last Admin: 09/29/17 16:20 Dose: 1,000 mg Metoprolol Tartrate (Lopressor) 50 mg PO DAILY [facility] Sitagliptin Phosphate (Januvia) 100 mg PO DAILY [facility] Last Admin: 09/29/17 08:56 Dose: 100 mg Valsartan (Diovan) 160 mg PO DAILY [facility] Last Admin: 09/29/17 16:18 Dose: Not Given - Labs Labs: 09/27/17 04:20 09/27/17 04:20 PT 12.0 Seconds (9.8-13.1) 09/27/17 04:20 INR 1.1 (0.9-1.2) 09/27/17 04:20 APTT 31.4 Seconds (25.6-37.1) 09/27/17 04:20 - Constitutional Appears: No Acute Distress - Head Exam Head Exam: NORMAL INSPECTION - Eye Exam Eye Exam: PERRL - ENT Exam ENT Exam: Normal Exam - Neck Exam Neck Exam: Normal Inspection - Respiratory Exam Respiratory Exam: NORMAL BREATHING PATTERN - Cardiovascular Exam Cardiovascular Exam: REGULAR RHYTHM - GI/Abdominal Exam GI & Abdominal Exam: Soft, Normal Bowel Sounds - Extremities Exam Additional comments: Deformity b/l hands 2nd to O/A - Back Exam Back Exam: NORMAL INSPECTION - Neurological Exam Neurological Exam: Alert, Oriented x3 - Psychiatric Exam Psychiatric exam: Normal Mood - Skin Skin Exam: Warm Assessment and Plan (1) Chest pain Status: Acute (2) Hypertension Status: Chronic (3) Hyperglycemia Status: Chronic (4) DM type 2 (diabetes mellitus, type 2) Status: Chronic - Assessment and Plan (Free Text) Plan: F/U Street test report.
--- NOTE | 2017-09-29 20:06 | PN ---
DATE: SUBJECTIVE: The patient denies any chest pain. PHYSICAL EXAMINATION: VITAL SIGNS: Blood pressure 116/80, heart rate 65, temperature 98.7, and respirations 20. HEENT: Normocephalic. CHEST: Clear. HEART: S1 and S2 regular. EXTREMITIES: No edema. LABORATORY DATA: I did review the exercise stress test that was performed; however, the Myoview imaging are missing because of the technical problems. However, the patient did not achieve reasonable heart rate during exercise treadmill and that part of the stress test is concerned nondiagnostic. ASSESSMENT: 1. Chest pain, rule out underlying coronary artery disease. 2. Hypertension. 3. Hyperlipidemia. 4. Diabetes mellitus. RECOMMENDATIONS: Continue aspirin 81 mg once a day, Diovan 160 mg once a day, hydrochlorothiazide 25 mg once a day, Lipitor 20 mg once a day, and Lopressor 50 mg once a day. The patient will be scheduled for Lexiscan tomorrow. Goldy Drew MD
[2017-09-30] MEDS: Enoxaparin 40 mg Syringe SC SCH (09:02)
[2017-09-30] MEDS ORDERED: Aminophylline 25 mg/ml Inj ONE (11:51)
--- NOTE | 2017-09-30 13:52 | CP.PCM.PN ---
Subjective - Date & Time of Evaluation Date of Evaluation: 09/30/17 - Subjective Subjective: F/U CP No SOB, no chest wall pain with breathing Objective - Vital Signs/Intake and Output Vital Signs (last 24 hours): Temp Pulse Resp BP Pulse Ox 98.9 F 90 20 108/68 100 09/30/17 13:00 09/30/17 13:00 09/30/17 13:00 09/30/17 13:00 09/30/17 13:00 - Medications Medications: Current Medications Aspirin (Aspirin Chewable) 81 mg PO DAILY [facility] Last Admin: 09/29/17 08:55 Dose: 81 mg Atorvastatin Calcium (Lipitor) 20 mg PO DAILY [facility] Last Admin: 09/29/17 08:57 Dose: 20 mg Azithromycin (Zithromax) 500 mg PO DAILY [facility] PRN Reason: Protocol Last Admin: 09/29/17 08:57 Dose: 500 mg Enoxaparin Sodium (Lovenox) 40 mg SC DAILY [facility] PRN Reason: Protocol Last Admin: 09/30/17 09:02 Dose: 40 mg Hydrochlorothiazide (Hydrodiuril) 25 mg PO DAILY [facility] Last Admin: 09/29/17 08:56 Dose: 25 mg Metformin HCl (Glucophage) 1,000 mg PO BIDAC [facility] Last Admin: 09/30/17 08:58 Dose: Not Given Metoprolol Tartrate (Lopressor) 50 mg PO DAILY [facility] Sitagliptin Phosphate (Januvia) 100 mg PO DAILY [facility] Last Admin: 09/29/17 08:56 Dose: 100 mg Valsartan (Diovan) 160 mg PO DAILY [facility] Last Admin: 09/29/17 16:18 Dose: Not Given - Labs Labs: 09/27/17 04:20 09/27/17 04:20 PT 12.0 Seconds (9.8-13.1) 09/27/17 04:20 INR 1.1 (0.9-1.2) 09/27/17 04:20 APTT 31.4 Seconds (25.6-37.1) 09/27/17 04:20 - Constitutional Appears: No Acute Distress - Head Exam Head Exam: NORMAL INSPECTION - Eye Exam Eye Exam: PERRL - ENT Exam ENT Exam: Normal Exam - Neck Exam Neck Exam: Normal Inspection - Respiratory Exam Respiratory Exam: NORMAL BREATHING PATTERN - Cardiovascular Exam Cardiovascular Exam: REGULAR RHYTHM - GI/Abdominal Exam GI & Abdominal Exam: Soft, Normal Bowel Sounds - Extremities Exam Additional comments: deformity b/l hands 2nd to O/A - Back Exam Back Exam: NORMAL INSPECTION - Neurological Exam Neurological Exam: Alert, Oriented x3 Assessment and Plan (1) Chest pain Status: Acute (2) Hypertension Status: Chronic (3) Hyperglycemia Status: Chronic (4) DM type 2 (diabetes mellitus, type 2) Status: Chronic - Assessment and Plan (Free Text) Plan: F/U Stress test reading by Cardiology.
--- NOTE | 2017-09-30 14:58 | CARD ---
APPROVED REPORT Protocol: LEXISCAN Test Type: Stress Nuclear Medications: ASA 81mg, Atoravastatin 20mg, Azithromycin 500mg, Enoxaparin 40mg, Hydrochlorothiazide 25mg, Metformin 1000mg, Metoprolol 50mg, Sitagliptin 100mg, Valsartan 160mg, Medical History: Hypertension, Asthma, Diabetic, CAD, Bronchitis, Bilateral Knee operation [id number], 2 Bunion surgery, ArthiritisBSO and MISA due to Endometriosis 2008, Target HR: 164 bpm Resting ECG: NSR Resting Heart Rate: 59 bpm Resting Blood Pressure: 121/89mmHg submaximum (85%): 139 bpm TEST SUMMARY [id number]. [id number]. INJECTIONNS FLUSH00:[id number]/[id number]. INJECTIONNUC MED00:[id number]/[id number]. [id number]/[id number]. PROCEDURE Pharmacologic stress testing was performed using 0.4mg per 5ml of regadenoson given intravenously over 7-10 seconds. POST EXERCISE Target HR: No Max HR: 69 bpm 64% of Maximum Predicted HR: 164 bpm Exercise duration: 00:44 min:sec, 0 Stage Exercise capacity: 1.0METs Max Blood Pressure: 131/81mmHg Chest Pain: No, none Angina index: 0 Arrhythmia: No, none ST Change: No, none Deviation: 0 mm Stress EKG Interpretation Unremarkable EKG and hemodynamic response response to IV LexiScan EXAM: Myocardial Perfusion REST/STRESS Imaging Protocol Rest Spect myocardial perfusion imaging was performed in supine position 45 minutes following the injection of 10.5 mCi of Tc-99 Myoview. Time of rest injection: 0815 Time of rest imagin At peak stress, the patient was injected intravenously with 30.2mCi of Tc-99 Myoview. after an infusion time of 1minutes and seconds. Time of stress injection: 1115 Time of stress after injection: 1116 Time of stress imagin Gated Stress Spect was performed 45 minutes after intravenous Tc-99 Myoview injection. The images were gated to evaluate regional wall motion and calculate ventricular ejection fraction. NUCLEAR IMAGE INTERPRETATION The rest and stress images show normal perfusion, normal contraction and thickening. LV Perfusion 1 The rest and stress images show normal perfusion. CONCLUSION 1. Negative Lexiscan study for Myocardial ischemia 2. Normal EF
--- NOTE | 2017-09-30 15:55 | PN ---
DATE: SUBJECTIVE: The patient denies any chest pain. PHYSICAL EXAMINATION: VITAL SIGNS: Blood pressure 108/68, heart rate 90, temperature 98.9, and respirations 18. HEENT: Normocephalic. CHEST: Clear. HEART: S1 and S2 regular. EXTREMITIES: No edema. LABORATORY DATA: Today's blood sugars are 128 and 164. Lexiscan was performed and no evidence of ischemia. Ejection fraction is within normal limits. ASSESSMENT: 1. Chest pain, myocardial infarction is ruled out. 2. Hypertension. 3. Diabetes mellitus. 4. History of bilateral total knee replacement. RECOMMENDATIONS: Case was discussed with . The patient can be discharged on aspirin, Diovan, metformin, hydrochlorothiazide, Januvia, Lipitor, and Lopressor. Goldy Drew MD
[2017-09-30] MEDS ORDERED: Metoprolol Succinate 50 mg XL Tab PO SCH (17:00)
[2017-10-01 00:18] VITALS: RESP 18
[2017-10-01 05:21] VITALS: TEMP 98.5
[2017-10-01 08:17] VITALS: O2SAT 97
[2017-10-01] MEDS: Enoxaparin 40 mg Syringe SC SCH (08:35)
[2017-10-01 12:17] VITALS: BP 108/73; PULSE 76
--- NOTE | 2017-10-01 12:46 | PN ---
DATE: SUBJECTIVE: The patient denies any chest pain. No reported . PHYSICAL EXAMINATION: VITAL SIGNS: Blood pressure 126/53, heart rate 60, temperature 98.5, and respirations 18. HEENT: Normocephalic. NECK: No JVD. CHEST: Clear. HEART: S1 and S2 regular. EXTREMITIES: No edema. LABORATORY DATA: Today's blood sugar is 112. ASSESSMENT: 1. Chest pain, myocardial infarction is ruled out. 2. Osteoarthritis and history of bilateral knee replacement. 3. Hypertension. 4. Diabetes mellitus. RECOMMENDATIONS: Case was discussed with Dr. Lara and with the patient. The patient can be discharged on current medical management including aspirin, Diovan, hydrochlorothiazide, Lipitor, and Toprol-XL. If chest pain continues to be clear, no cardiac catheterization would be considered. Goldy Drew MD
--- NOTE | 2017-10-01 14:38 | CP.PCM.DIS ---
Provider - Provider Date of Admission: 09/27/17 14:47 Attending physician: Joey Lara MD Diagnosis - Discharge Diagnosis (1) Chest pain Status: Acute Priority: High (2) Hypertension Status: Chronic Priority: Medium (3) Hyperglycemia Status: Chronic Priority: Medium (4) DM type 2 (diabetes mellitus, type 2) Status: Chronic Priority: Medium Hospital Course - Lab Results Lab Results: Most Recent Lab Values WBC 4.5 K/uL (4.8-10.8) L 09/27/17 04:20 RBC 4.67 Mil/uL (3.80-5.20) 09/27/17 04:20 Hgb 14.9 g/dL (12.0-16.0) 09/27/17 04:20 Hct 43.7 % (34.0-47.0) 09/27/17 04:20 MCV 93.5 fl (81.0-99.0) 09/27/17 04:20 MCH 31.8 pg (27.0-31.0) H 09/27/17 04:20 MCHC 34.0 g/dL (33.0-37.0) 09/27/17 04:20 RDW 14.6 % (11.5-14.5) H 09/27/17 04:20 Plt Count 206 K/uL (130-400) 09/27/17 04:20 MPV 10.1 fl (7.2-11.7) 09/27/17 04:20 Neut % (Auto) 47.3 % (50.0-75.0) L 09/27/17 04:20 Lymph % (Auto) 39.2 % (20.0-40.0) 09/27/17 04:20 Reeves % (Auto) 8.9 % (0.0-10.0) 09/27/17 04:20 Eos % (Auto) 3.8 % (0.0-4.0) 09/27/17 04:20 Baso % (Auto) 0.8 % (0.0-2.0) 09/27/17 04:20 Neut # (Auto) 2.1 K/uL (1.8-7.0) 09/27/17 04:20 Lymph # (Auto) 1.8 K/uL (1.0-4.3) 09/27/17 04:20 Reeves # (Auto) 0.4 K/uL (0.0-0.8) 09/27/17 04:20 Eos # (Auto) 0.2 K/uL (0.0-0.7) 09/27/17 04:20 Baso # (Auto) 0.0 K/uL (0.0-0.2) 09/27/17 04:20 PT 12.0 Seconds (9.8-13.1) 09/27/17 04:20 INR 1.1 (0.9-1.2) 09/27/17 04:20 APTT 31.4 Seconds (25.6-37.1) 09/27/17 04:20 D-Dimer, Quantitative 165 ng/mlDDU (0-230) 09/26/17 18:10 Sodium 143 mmol/l (132-148) 09/27/17 04:20 Potassium 4.0 MMOL/L (3.6-5.0) 09/27/17 04:20 Chloride 104 mmol/L (98-107) 09/27/17 04:20 Carbon Dioxide 26 mmol/L (22-30) 09/27/17 04:20 Anion Gap 17 (10-20) 09/27/17 04:20 BUN 18 mg/dl (7-17) H 09/27/17 04:20 Creatinine 0.6 mg/dl (0.7-1.2) L 09/27/17 04:20 Est GFR ( Amer) > 60 09/27/17 04:20 Est GFR (Non-Af Amer) > 60 09/27/17 04:20 POC Glucose (mg/dL) 112 mg/dL (65-110) H 10/01/17 05:39 Random Glucose 171 mg/dL (65-105) H 09/27/17 04:20 Hemoglobin A1c 9.9 % (4.2-6.5) H 09/27/17 04:20 Calcium 9.6 mg/dL (8.4-10.2) 09/27/17 04:20 Total Bilirubin 0.8 mg/dl (0.2-1.3) 09/27/17 04:20 AST 16 U/L (14-36) 09/27/17 04:20 ALT 35 U/L (9-52) 09/27/17 04:20 Alkaline Phosphatase 83 U/L (38-126) 09/27/17 04:20 Troponin I < 0.0120 ng/mL (0.00-0.120) 09/27/17 04:20 Total Protein 7.2 G/DL (6.3-8.2) 09/27/17 04:20 Albumin 4.0 g/dL (3.5-5.0) 09/27/17 04:20 Globulin 3.1 gm/dL (2.2-3.9) 09/27/17 04:20 Albumin/Globulin Ratio 1.3 (1.0-2.1) 09/27/17 04:20 Triglycerides 215 mg/DL (0-149) H D 09/27/17 04:20 Cholesterol 188 mg/dL (0-199) 09/27/17 04:20 LDL Cholesterol Direct 50 mg/dL (0-129) 09/27/17 04:20 HDL Cholesterol 50 MG/DL (30-70) 09/27/17 04:20 Thyroxine (T4) 7.81 ug/dl (5.5-11.0) 09/27/17 04:20 TSH 3rd Generation 1.35 mIU/ML (0.46-4.68) 09/27/17 04:20 Urine Color Yellow (YELLOW) 09/27/17 06:30 Urine Clarity Clear (Clear) 09/27/17 06:30 Urine pH 5.0 (5.0-8.0) 09/27/17 06:30 Ur Specific [place] 1.021 (1.003-1.030) 09/27/17 06:30 Urine Protein Negative mg/dL (NEGATIVE) 09/27/17 06:30 Urine Glucose (UA) >=500 mg/dL (Normal) 09/27/17 06:30 Urine Ketones Negative mg/dL (NEGATIVE) 09/27/17 06:30 Urine Blood Negative (NEGATIVE) 09/27/17 06:30 Urine Nitrate Negative (NEGATIVE) 09/27/17 06:30 Urine Bilirubin Negative (NEGATIVE) 09/27/17 06:30 Urine Urobilinogen 0.2-1.0 mg/dL (0.2-1.0) 09/27/17 06:30 Ur Leukocyte Esterase Neg Perfecto/uL (Negative) 09/27/17 06:30 Urine RBC (Auto) 1 /hpf (0-3) 09/27/17 06:30 Urine Microscopic WBC 1 /hpf (0-5) 09/27/17 06:30 Ur Squamous Epith Cells 1 /hpf (0-5) 09/27/17 06:30 Urine Creatinine 143 mg/dL (20-320) 09/27/17 06:30 Urine Microalbumin 0.5 mg/dL 09/27/17 06:30 Microalb/Creat Ratio 4 (<30) 09/27/17 06:30 Discharge Exam - Head Exam Head Exam: NORMAL INSPECTION Discharge Plan - Discharge Medications Prescriptions: Aspirin [Aspirin Chewable] 81 mg PO DAILY 30 Days chew Valsartan [Diovan] 160 mg PO DAILY #30 tab MetFORMIN [glucoPHAGE] 1,000 mg PO BIDAC #30 tab hydroCHLOROthiazide [Hydrodiuril] 25 mg PO DAILY #30 tab Atorvastatin [Lipitor] 20 mg PO DAILY 30 Days tab Metoprolol Succinate [Toprol XL] 50 mg PO DAILY #30 tab - Follow Up Plan Condition: STABLE Disposition: HOME/ ROUTINE Instructions: Chest Pain (DC) Referrals: Margie Burks MD [Family Provider] - Goldy Drew MD [Staff Provider] -
== END 2017-10-01 14:00 | disposition home or self-care (01) | DRG 313 ==
LOC: H.ER 06:30 → H.ERHOLD 09:55 → H.TEL 21:45 → OBSVTOIN 09-27 14:47
PROVIDERS: ADMIT Internal Medicine Pulmonary Disease; ATTEND Internal Medicine Pulmonary Disease
DX: R07.89 Other chest pain (principal); I25.10 Atherosclerotic heart disease of native coronary artery without angina pectoris; I10 Essential (primary) hypertension; E11.65 Type 2 diabetes mellitus with hyperglycemia; J45.909 Unspecified asthma, uncomplicated; E78.5 Hyperlipidemia, unspecified; M19.90 Unspecified osteoarthritis, unspecified site; Z79.82 Long term (current) use of aspirin; Z96.653 Presence of artificial knee joint, bilateral

== ENCOUNTER 2018-02-22 10:12 | Observation (INO) | payer OTHER ==
[2018-02-22 10:16] VITALS: BMI 30.7
--- NOTE | 2018-02-22 10:45 | ED PDOC ---
HPI: Hypertension/Hypotension Time Seen by Provider: 02/22/18 10:22 Chief Complaint (Nursing): High Blood Pressure History Per: Patient Onset/Duration Of Symptoms: Days (2) Associated Symptoms: Headache Severity: Mild Additional Complaint(s): Headache since yesterday. BP elevated yesterday and today. Denies dizziness, chest pain or SOB. No focal weakness. Past Medical History Vital Signs: Last Vital Signs Temp 99.1 F 02/22/18 10:14 Pulse 69 02/22/18 10:14 Resp 20 02/22/18 10:14 BP 173/113 H 02/22/18 10:14 Pulse Ox 97 02/22/18 10:14 - Medical History PMH: Arthritis, Asthma, Bronchitis, CAD, Diabetes, HTN Denies: HIV, Chronic Kidney Disease, Rheumatoid Arthritis - Surgical History Surgical History: Tonsillectomy - Family History Family History: States: Unknown Family Hx - Home Medications Home Medications: Ambulatory Orders Medication Instructions Recorded SITagliptin [Januvia] 100 mg PO DAILY 09/26/17 Aspirin [Aspirin Chewable] 81 mg PO DAILY 30 Days chew 10/01/17 Atorvastatin [Lipitor] 20 mg PO DAILY 30 Days tab 10/01/17 MetFORMIN [glucoPHAGE] 1,000 mg PO BIDAC #30 tab 10/01/17 Metoprolol Succinate XL [Toprol XL] 50 mg PO DAILY #30 tab 10/01/17 SITagliptin [Januvia] 100 mg PO DAILY tab 10/01/17 Valsartan [Diovan] 160 mg PO DAILY #30 tab 10/01/17 hydroCHLOROthiazide [Hydrodiuril] 25 mg PO DAILY #30 tab 10/01/17 - Allergies Allergies/Adverse Reactions: Allergies Allergy/AdvReac Type Severity Reaction Status Date / Time No Known Allergies Allergy Verified 02/22/18 10:23 Review of Systems ROS Statement: Except As Marked, All Systems Reviewed And Found Negative Neurological: Positive for: Headache Physical Exam - Reviewed Nursing Documentation Reviewed: Yes Vital Signs Reviewed: Yes - Physical Exam Appears: Positive for: Non-toxic, No Acute Distress Head Exam: Positive for: ATRAUMATIC, NORMAL INSPECTION, NORMOCEPHALIC Skin: Positive for: Normal Color, Warm, DRY Eye Exam: Positive for: EOMI, Normal appearance, PERRL Neck: Positive for: Normal, Painless ROM Cardiovascular/Chest: Positive for: Regular Rate, Rhythm Respiratory: Positive for: CNT, Normal Breath Sounds Gastrointestinal/Abdominal: Positive for: Normal Exam, Soft Back: Positive for: Normal Inspection Extremity: Positive for: Normal ROM Neurologic/Psych: Positive for: Alert, Oriented - Laboratory Results Result Diagrams: 02/22/18 11:25 02/22/18 11:25 - ECG O2 Sat by Pulse Oximetry: 97 Medical Decision Making Medical Decision Making: Time: 1152 CXR RESULTS FINDINGS: LINES AND TUBES: None. LUNG AND PLEURA: The lungs are well inflated and clear. There is apparent abnormal soft tissue in the right paratracheal region. . No pleural effusion or pneumothorax. HEART AND MEDIASTINUM: The heart is not enlarged. The hilar and mediastinal contours are within normal limits. SKELETAL STRUCTURES: The bony structures are within normal limits for the patient's age. VISUALIZED UPPER ABDOMEN: Normal. OTHER FINDINGS: None. IMPRESSION: Abnormal soft tissue in the right paratracheal region could be related to SVC shadow however mass or lymphadenopathy cannot be excluded. Dedicated CT scan of the chest with intravenous contrast is recommended for further evaluation. Disposition - Clinical Impression Clinical Impression: Hypertension, Abnormal EKG - Patient ED Disposition Is Patient to be Admitted: Yes - Disposition Disposition Time: 12:17 Condition: FAIR Forms: [employer] (Urdu) - Pt Status Changed To: Hospital Disposition Of: Observation - POA Present On Arrival: None
--- NOTE | 2018-02-22 11:25 | RAD ---
HISTORY: COMPARISON: 09/26/2017. TECHNIQUE: Chest PA and lateral FINDINGS: LINES AND TUBES: None. LUNG AND PLEURA: The lungs are well inflated and clear. There is apparent abnormal soft tissue in the right paratracheal region. . No pleural effusion or pneumothorax. HEART AND MEDIASTINUM: The heart is not enlarged. The hilar and mediastinal contours are within normal limits. SKELETAL STRUCTURES: The bony structures are within normal limits for the patient's age. VISUALIZED UPPER ABDOMEN: Normal. OTHER FINDINGS: None. IMPRESSION: Abnormal soft tissue in the right paratracheal region could be related to SVC shadow however mass or lymphadenopathy cannot be excluded. Dedicated CT scan of the chest with intravenous contrast is recommended for further evaluation.
[2018-02-22 11:33] LABS: BASO # 0.1 K/uL (0.0-0.2); EOS # 0.2 K/uL (0.0-0.7); EOS % 3.5 % (0.0-4.0); LYMPH % 33.7 % (20.0-40.0); MEAN CELL VOLUME 92.3 fl (81.0-99.0); MEAN CORPUSCULAR HEMOGLOBIN 31.3 pg (27.0-31.0); MEAN CORPUSCULAR HGB CONC 33.9 g/dL (33.0-37.0); MEAN PLATELET VOLUME 10.3 fl (7.2-11.7); MONO # 0.4 K/uL (0.0-0.8); NEUT # 3.2 K/uL (1.8-7.0); NEUT % 54.8 % (50.0-75.0); NRBC % 0.1 % (0.0-0.0); RBC 4.47 Mil/uL (3.80-5.20); RED CELL DISTRIBUTION WIDTH 14.7 % (11.5-14.5); WHITE BLOOD COUNT 5.9 K/uL (4.8-10.8)
[2018-02-22 11:42] LABS: ALB/GLOB RATIO 1.5 (1.0-2.1); ALBUMIN 4.6 g/dL (3.5-5.0); ALT/SGPT 197 U/L (9-52); AST/SGOT 110 U/L (14-36); BLOOD UREA NITROGEN 14 mg/dl (7-17); CALCIUM 9.7 mg/dL (8.4-10.2); GFR NON-AFRICAN AMERICAN > 60
--- NOTE | 2018-02-22 12:11 | CARD ---
APPROVED REPORT Date of service: 02/22/2018 EKG Measurement Heart [id number] <Conclusion> Sinus bradycardia Voltage criteria for left ventricular hypertrophy Cannot rule out Septal infarct, age undetermined T wave abnormality, consider anterolateral ischemia Abnormal ECG
--- NOTE | 2018-02-22 14:34 | CP.PCM.HP ---
<Diaz Menjivar - Last Filed: 02/22/18 14:30> History of Present Illness - History of Present Illness History of Present Illness: 57 y/o F with a PMHx of DM 2 and HTn presented to ER c/o headache that began yesterday. Pt described headache as pressure and sharp, frontal area, non- radiating and constant. Pt denies fever, chills, chest pain, SOB, nausea, vomiting, abdominal pain, sweating, rash or peripheral edema. -Pt was admitted for observation 5 months ago due to chest pain and SOB. During that admission: >CT chest unremarkable >CT pulmonary angiogram no PE, >Carotid ultrasound showed <50% stenosis of internal carotid arteries bilaterally. >Echocardiogram: Left ventricle normal size mild concentric left ventricular hypertrophy, left ventricular ejection fraction is borderline. >Myocardial perfusion study showed negative Lexiscan study for MS, normal EF. PCP: Samuel Velasquez - pt looking for a new PMD since new insurance policy. -NKDA -MEDS: Metoprolol, Valsartan, Metformin, Januvia, Aspirin -PMHX: DM 2 and HTN -PSHx:: BSO-MISA due to endometriosis 2008, B/L total knee replacement. -SHx: Denies tobacco or rec drugs. Occasional alcohol. At ED: --CBC unremarkable --CMP showed elevated LFT's and hyperglycemia --Troponin negative x1. --EKG: T wave abnormalities. Present on Admission - Present on Admission Any Indicators Present on Admission: No Review of Systems - Constitutional Constitutional: absent: Anorexia, Chills, Fever - EENT Eyes: absent: Change in Vision Ears: absent: Ear Pain Nose/Mouth/Throat: absent: Nasal Congestion, Neck Pain - Cardiovascular Cardiovascular: absent: Chest Pain, Chest Pain at Rest, Dyspnea, Orthopnea - Respiratory Respiratory: absent: Dyspnea, Hemoptysis - Gastrointestinal Gastrointestinal: absent: Abdominal Pain, Hematemesis, Hematochezia, Nausea, Vomiting - Musculoskeletal Musculoskeletal: absent: Abnormal Gait, Atrophy, Stiffness Past Patient History - Infectious Disease Hx of Infectious Diseases: None - Tetanus Immunizations Tetanus Immunization: Unknown - Past Medical History & Family History Past Medical History?: Yes - Past Social History Smoking Status: Never Smoked - CARDIAC Hx Hypertension: Yes - PULMONARY Hx Asthma: Yes Hx Bronchitis: Yes - NEUROLOGICAL Hx Neurological Disorder: No - HEENT Hx HEENT Problems: No - RENAL Hx Chronic Kidney Disease: No - HEMATOLOGICAL/ONCOLOGICAL Hx Human Immunodeficiency Virus (HIV): No - INTEGUMENTARY Hx Dermatological Problems: No - MUSCULOSKELETAL/RHEUMATOLOGICAL Hx Arthritis: Yes Hx Rheumatoid Arthritis: No - GASTROINTESTINAL Hx Gastrointestinal Disorders: No - GENITOURINARY/GYNECOLOGICAL Hx Genitourinary Disorders: Yes Other/Comment: BSO and MISA due To Endometriosis - 2009 - PSYCHIATRIC Hx Psychophysiologic Disorder: No Hx Substance Use: No - SURGICAL HISTORY Hx Tonsillectomy: Yes - ANESTHESIA Hx Anesthesia: Yes Hx Anesthesia Reactions: No Hx Malignant Hyperthermia: No Meds Allergies/Adverse Reactions: Allergies Allergy/AdvReac Type Severity Reaction Status Date / Time No Known Allergies Allergy Verified 02/22/18 10:23 Physical Exam - Constitutional Appears: No Acute Distress - Head Exam Head Exam: ATRAUMATIC, NORMAL INSPECTION - Eye Exam Eye Exam: EOMI Pupil Exam: PERRL - ENT Exam ENT Exam: Mucous Membranes Dry - Neck Exam Neck exam: Positive for: Full Rom. Negative for: Meningismus - Respiratory Exam Respiratory Exam: Clear to Auscultation Bilateral, NORMAL BREATHING PATTERN - Cardiovascular Exam Cardiovascular Exam: REGULAR RHYTHM, +S1, +S2 - GI/Abdominal Exam GI & Abdominal Exam: Normal Bowel Sounds, Soft. absent: Guarding, Tenderness - Extremities Exam Extremities exam: Positive for: full ROM, normal inspection. Negative for: calf tenderness - Neurological Exam Neurological exam: Alert, Oriented x3 Results - Vital Signs Recent Vital Signs: Last Vital Signs Temp 99.1 F 02/22/18 10:14 Pulse 62 02/22/18 12:22 Resp 16 02/22/18 12:22 BP 167/98 H 02/22/18 12:02 Pulse Ox 100 02/22/18 12:22 - Labs Result Diagrams: 02/22/18 11:25 02/22/18 11:25 Labs: Laboratory Results - last 24 hr 02/22/18 02/22/18 02/22/18 10:49 11:25 11:25 WBC 5.9 RBC 4.47 Hgb 14.0 Hct 41.3 MCV 92.3 MCH 31.3 H MCHC 33.9 RDW 14.7 H Plt Count 160 MPV 10.3 Neut % (Auto) 54.8 Lymph % (Auto) 33.7 Nance % (Auto) 7.0 Eos % (Auto) 3.5 Baso % (Auto) 1.0 Neut # (Auto) 3.2 Lymph # (Auto) 2.0 Nance # (Auto) 0.4 Eos # (Auto) 0.2 Baso # (Auto) 0.1 Sodium 142 Potassium 4.5 Chloride 107 Carbon Dioxide 27 Anion Gap 13 BUN 14 Creatinine 0.6 L Est GFR ( Amer) > 60 Est GFR (Non-Af Amer) > 60 POC Glucose (mg/dL) 134 H Random Glucose 124 H Calcium 9.7 Total Bilirubin 1.3 AST 110 H D ALT 197 H D Alkaline Phosphatase 114 Troponin I < 0.0120 Total Protein 7.7 Albumin 4.6 Globulin 3.0 Albumin/Globulin Ratio 1.5 Assessment & Plan (1) Abnormal EKG Status: Acute (2) Hypertension Status: Chronic Priority: Medium (3) DM type 2 (diabetes mellitus, type 2) Status: Chronic Priority: Medium - Assessment and Plan (Free Text) Assessment: 57 y/o f with a PMHx of DM 2 and HTN admitted for evaluation and management of abnormal EKG findings (T-wave abnormalities). --Home medications ordered. --Repeat Troponin and EKG ordered. --Cardiology, Dr Drew, consult. --Ibuprofen for pain management. --Management as ordered. - Date & Time Date: 02/22/18 Time: 15:00 <Golden Lee - Last Filed: 02/23/18 17:34> Results - Vital Signs Recent Vital Signs: Last Vital Signs Temp 98.6 F 02/23/18 15:52 Pulse 61 02/23/18 15:52 Resp 20 02/23/18 15:52 BP 166/99 H 02/23/18 15:52 Pulse Ox 98 02/23/18 15:52 - Labs Result Diagrams: 02/23/18 04:56 02/23/18 04:56 Labs: Laboratory Results - last 24 hr 02/22/18 02/22/18 02/23/18 21:00 21:17 04:56 WBC RBC Hgb Hct MCV MCH MCHC RDW Plt Count Sodium 139 Potassium 4.3 Chloride 106 Carbon Dioxide 28 Anion Gap 9 L BUN 16 Creatinine 0.6 L Est GFR ( Amer) > 60 Est GFR (Non-Af Amer) > 60 POC Glucose (mg/dL) 124 H Random Glucose 128 H Hemoglobin A1c Calcium 9.4 Total Bilirubin 1.2 AST 55 H D ALT 140 H D Alkaline Phosphatase 100 Troponin I < 0.0120 < 0.0120 Total Protein 6.7 Albumin 4.0 Globulin 2.7 Albumin/Globulin Ratio 1.5 Triglycerides 124 D Cholesterol 174 LDL Cholesterol Direct 52 HDL Cholesterol 59 02/23/18 02/23/18 02/23/18 04:56 04:56 05:39 WBC 4.7 L RBC 4.58 Hgb 13.9 Hct 42.1 MCV 91.8 MCH 30.4 MCHC 33.1 RDW 14.8 H Plt Count 140 Sodium Potassium Chloride Carbon Dioxide Anion Gap BUN Creatinine Est GFR ( Amer) Est GFR (Non-Af Amer) POC Glucose (mg/dL) 129 H Random Glucose Hemoglobin A1c 7.5 H D Calcium Total Bilirubin AST ALT Alkaline Phosphatase Troponin I Total Protein Albumin Globulin Albumin/Globulin Ratio Triglycerides Cholesterol LDL Cholesterol Direct HDL Cholesterol 02/23/18 11:50 WBC RBC Hgb Hct MCV MCH MCHC RDW Plt Count Sodium Potassium Chloride Carbon Dioxide Anion Gap BUN Creatinine Est GFR ( Amer) Est GFR (Non-Af Amer) POC Glucose (mg/dL) 89 Random Glucose Hemoglobin A1c Calcium Total Bilirubin AST ALT Alkaline Phosphatase Troponin I Total Protein Albumin Globulin Albumin/Globulin Ratio Triglycerides Cholesterol LDL Cholesterol Direct HDL Cholesterol Assessment & Plan - Assessment and Plan (Free Text) Plan: I was present during evaluation and discussed with Dr Tiara stovall plans of care and tx Golden Lee M.D.
[2018-02-22] MEDS ORDERED: Glucagon Recombinant 1 mg Inj IM PRN (14:55)
[2018-02-22] MEDS ORDERED: Dextrose 50% SYRINGE Inj (50 ml) IV PRN (14:55)
[2018-02-22] MEDS: Insulin Lispro (humaLOG) 100 Units/ml Inj SC SCH (22:26)
[2018-02-23 05:06] LABS: HEMOGLOBIN 13.9 g/dL (12.0-16.0); MEAN CELL VOLUME 91.8 fl (81.0-99.0); MEAN CORPUSCULAR HEMOGLOBIN 30.4 pg (27.0-31.0); MEAN CORPUSCULAR HGB CONC 33.1 g/dL (33.0-37.0); RBC 4.58 Mil/uL (3.80-5.20); RED CELL DISTRIBUTION WIDTH 14.8 % (11.5-14.5); WHITE BLOOD COUNT 4.7 K/uL (4.8-10.8)
[2018-02-23 05:22] LABS: LDL CHOLESTEROL 52 mg/dL (0-129)
[2018-02-23 05:34] LABS: BLOOD UREA NITROGEN 16 mg/dl (7-17); CALCIUM 9.4 mg/dL (8.4-10.2); GFR NON-AFRICAN AMERICAN > 60
[2018-02-23 05:35] LABS: ALB/GLOB RATIO 1.5 (1.0-2.1); ALT/SGPT 140 U/L (9-52); AST/SGOT 55 U/L (14-36); HDL CHOLESTEROL 59 MG/DL (30-70)
[2018-02-23] MEDS: Insulin Lispro (humaLOG) 100 Units/ml Inj SC SCH ×4 (06:20→22:21)
[2018-02-23] MEDS: Metoprolol Succinate 50 mg XL Tab PO SCH (09:43)
--- NOTE | 2018-02-23 16:59 | US ---
Date of service: 02/23/2018 HISTORY: abn ast alt COMPARISON: None. TECHNIQUE: Grayscale imaging was performed. FINDINGS: LIVER: Measures 16.4 cm. There is diffuse increased echogenicity of the liver parenchyma. No mass. No intrahepatic bile duct dilatation. GALLBLADDER: Unremarkable. No gallstones. COMMON BILE DUCT: Measures 3.7 mm. No stones. No dilatation. PANCREAS: The pancreas appears enlarged and echogenic. No ductal dilatation. RIGHT KIDNEY: Measures 10.8cm. Normal echogenicity. No calculus, mass, or hydronephrosis. LEFT KIDNEY: Measures 10.9cm. Normal echogenicity. No calculus, mass, or hydronephrosis. SPLEEN: Normal in size and contour. No mass. AORTA: No aneurysmal dilatation. IVC: Unremarkable. OTHER FINDINGS: None. IMPRESSION: 1. Mild hepatomegaly. Diffuse increased echogenicity in the liver may reflect hepatic steatosis however parenchymal infectious/ inflammatory etiologies cannot be entirely excluded. Clinical and laboratory correlation is advised. . 2. No cholelithiasis or biliary dilatation. 3. Apparent enlarged pancreas, underlying pancreatitis cannot be excluded. Please correlate with serum lipase levels. If clinically indicated, CT scan with intravenous contrast may be performed for further evaluation.
--- NOTE | 2018-02-23 17:00 | CT ---
Date of service: 02/23/2018 PROCEDURE: CT Chest without contrast HISTORY: lung nodule COMPARISON: 09/27/2017 TECHNIQUE: Contiguous axial images were obtained through the chest without intravenous contrast enhancement. Sagittal and coronal reconstructions were performed. Radiation dose (DLP): 433.91 mGy-cm. This CT exam was performed using one or more of the following dose reduction techniques: Automated exposure control, adjustment of the mA and/or kV according to patient size, and/or use of iterative reconstruction technique. FINDINGS: LUNGS: No infiltrate. No pulmonary mass. Stable linear pleural-based scar in lingular segment of left upper lobe and in left lower lobe and in right lower lobe. MEDIASTINUM: Unremarkable thoracic aorta. No aneurysm. Normal sized heart. Main pulmonary artery unremarkable. No vascular congestion. No lymphadenopathy. PLEURA: No pleural fluid. No pneumothorax. BONES: No fracture. No destructive lesion. UPPER ABDOMEN: Fatty infiltration of the liver. OTHER FINDINGS: None. IMPRESSION: No pulmonary mass. Fatty infiltration of the liver. No other significant abnormality.
--- NOTE | 2018-02-23 17:40 | CP.PCM.PN ---
Subjective - Date & Time of Evaluation Date of Evaluation: 02/23/18 Time of Evaluation: 14:30 - Subjective Subjective: Noted to have+ persistently elevated BP Also noted elevated ast and alt denies any alcohol intake had not taken any other medications Denies any abdominal pains. Objective - Vital Signs/Intake and Output Vital Signs (last 24 hours): Temp Pulse Resp BP Pulse Ox 98.6 F 61 20 166/99 H 98 02/23/18 15:52 02/23/18 15:52 02/23/18 15:52 02/23/18 15:52 02/23/18 15:52 - Medications Medications: Current Medications Amlodipine Besylate (Norvasc) 10 mg PO DAILY [facility] Dextrose (Dextrose 50% Inj) 0 ml IV STAT PRN; Protocol PRN Reason: Hypoglycemia Protocol Dextrose (Glutose 15) 0 gm PO ONCE PRN; Protocol PRN Reason: Hypoglycemia Protocol Glucagon (Glucagen Diagnostic Kit) 0 mg IM STAT PRN; Protocol PRN Reason: Hypoglycemia Protocol Hydralazine HCl (Apresoline) 25 mg PO TID PRN PRN Reason: Systolic Blood Pressure Ibuprofen (Motrin Tab) 400 mg PO Q6 PRN PRN Reason: Pain, moderate (4-7) Last Admin: 02/23/18 09:41 Dose: 400 mg Insulin Human Lispro (Humalog) 0 units SC ACCU-CHECK [facility] PRN Reason: Protocol Last Admin: 02/23/18 15:37 Dose: Not Given Losartan Potassium (Cozaar) 100 mg PO DAILY [facility] Metformin HCl (Glucophage) 1,000 mg PO BID [facility] Last Admin: 02/23/18 09:40 Dose: 1,000 mg Metoprolol Succinate (Toprol Xl) 50 mg PO DAILY [facility] Last Admin: 02/23/18 09:43 Dose: Not Given Sitagliptin Phosphate (Januvia) 100 mg PO DAILY [facility] Last Admin: 02/23/18 09:40 Dose: 100 mg - Labs Labs: 02/23/18 04:56 02/23/18 04:56 - Head Exam Head Exam: NORMAL INSPECTION - Eye Exam Eye Exam: Normal appearance - ENT Exam ENT Exam: Mucous Membranes Moist - Respiratory Exam Respiratory Exam: Clear to Ausculation Bilateral - Cardiovascular Exam Cardiovascular Exam: REGULAR RHYTHM - GI/Abdominal Exam GI & Abdominal Exam: Normal Bowel Sounds - Neurological Exam Neurological Exam: Awake, Oriented x3 - Psychiatric Exam Psychiatric exam: Normal Mood Assessment and Plan (1) Abnormal liver enzymes Status: Acute (2) Hypertension Status: Chronic (3) DM type 2 (diabetes mellitus, type 2) Status: Chronic - Assessment and Plan (Free Text) Plan: adjust meds add amlodipine add hydralazine prn check liver enz check US abdomen.
[2018-02-23 18:33] LABS: AMYLASE 79 U/L (30-110); LIPASE 116 U/L (23-300)
[2018-02-23 22:12] LABS: HEPATITIS B SURFACE AG Negative (NEGATIVE)
[2018-02-23 22:18] LABS: HEPATITIS A IGM NEGATIVE (NEGATIVE); HEPATITIS B CORE AB NEGATIVE (NEGATIVE)
[2018-02-23 22:30] LABS: HEPATITIS C ANTIBODY NEGATIVE (NEGATIVE)
--- NOTE | 2018-02-24 04:56 | CON ---
Copied To: Goldy Drew MD Attending MD: Goldy Drew MD DATE: 02/23/2018 CARDIOLOGY CONSULTATION REASON FOR CONSULTATION: Uncontrolled hypertension. HISTORY OF PRESENT ILLNESS: The patient is a 57-year-old female who has a history of hypertension and diabetes mellitus. 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 While she was working yesterday on the third floor, she started experiencing headache and lightheadedness and was brought to the emergency room for further evaluation. The patient was also found to have abnormal EKG in the emergency room with anterior T-wave inversion. The patient denied any chest pain or shortness of breath. Blood pressure in the emergency room was 173/115. The patient stated that she was taking all her medications, however. Last time she saw her primary physician was in early 12/2017, and she could not see him after this because of her insurance issue as she does not with her insurance; however, she has enough medication refills to keep taking all meds. The patient was evaluated by me in 09/2017. A Lexiscan was performed on 09/30/2017 and was negative for ischemia. SOCIAL HISTORY: Nonsmoker. Nondrinker. PAST MEDICAL HISTORY: Hypertension, diabetes mellitus, bilateral total knee replacement. MEDICATIONS: Cozaar 100 mg once a day, metformin 1 g twice a day, Januvia 100 mg once a day, Toprol-XL 50 mg once a day. REVIEW OF SYSTEMS: No nausea or vomiting. No fever or chills. The patient did experience lightheadedness, but no syncope. PHYSICAL EXAMINATION: GENERAL: The patient is a middle-age female who does not appear to be in any distress. VITAL SIGNS: Blood pressure 166/99, heart rate 61, temperature 98.6, respiration 20. HEENT: Head is normocephalic. NECK: No JVD. CHEST: Clear. HEART: S1 and S2 are regular. ABDOMEN: Soft. EXTREMITIES: No edema. Scar of bilateral total knee replacement is noted. LABORATORY DATA: CBC: WBC 4.7, hemoglobin 13.5, hematocrit 42.1, platelet count 140,000. SMA-7: Sodium 139, potassium 4.3, chloride 106, CO2 of 28, glucose 128, BUN 16, creatinine 0.6. Two sets of troponins are negative. Lipid profile is within normal limits. Abdominal ultrasound revealed mild hepatomegaly, diffuse increased echogenicity in the liver, may reflect hepatic steatosis; however, parenchymal infectious/inflammatory etiology cannot be entirely excluded. No cholelithiasis or biliary dilatation. Apparent enlarged pancreas, underlying pancreatitis cannot be excluded. Please correlate with serum lipase levels. If clinically indicated, CT scan with intervenous contrast may be performed for further evaluation. Chest CT scan without contrast, no pulmonary mass or ascites. Slightly infiltrate of the live liver. EKG reveled sinus bradycardia at a rate of 59 with anterior T-wave inversion which could be nonspecific. ASSESSMENT: 1. Uncontrolled hypertension. 2. New anterior T-wave inversion. 3. Uncontrolled diabetes mellitus. 4. Fatty liver and questionable pancreatic enlargement. RECOMMENDATIONS: I will obtain serum amylase and lipase levels now. Continue current Cozaar 100 mg once a day, metformin 1 g twice a day, Januvia 100 once a day, Toprol-XL 50 mg once a day. Repeat 12-lead EKG and consider obtaining pancreatic CAT scan with IV contrast. Goldy Drew MD
[2018-02-24 05:28] LABS: BASO % 0.5 % (0.0-2.0); EOS # 0.2 K/uL (0.0-0.7); EOS % 3.5 % (0.0-4.0); HEMOGLOBIN 14.6 g/dL (12.0-16.0); LYMPH # 1.4 K/uL (1.0-4.3); LYMPH % 28.1 % (20.0-40.0); MEAN CELL VOLUME 92.6 fl (81.0-99.0); MEAN CORPUSCULAR HEMOGLOBIN 30.9 pg (27.0-31.0); MEAN CORPUSCULAR HGB CONC 33.4 g/dL (33.0-37.0); MEAN PLATELET VOLUME 10.3 fl (7.2-11.7); MONO # 0.4 K/uL (0.0-0.8); MONO % 7.8 % (0.0-10.0); NEUT # 3.1 K/uL (1.8-7.0); NEUT % 60.1 % (50.0-75.0); NRBC % 0.1 % (0.0-0.0); RBC 4.72 Mil/uL (3.80-5.20); WHITE BLOOD COUNT 5.1 K/uL (4.8-10.8)
[2018-02-24 05:57] LABS: ALB/GLOB RATIO 1.5 (1.0-2.1); ALBUMIN 4.1 g/dL (3.5-5.0); ALT/SGPT 99 U/L (9-52); AST/SGOT 32 U/L (14-36); BLOOD UREA NITROGEN 17 mg/dl (7-17); CALCIUM 9.5 mg/dL (8.4-10.2); GFR NON-AFRICAN AMERICAN > 60
[2018-02-24] MEDS: Insulin Lispro (humaLOG) 100 Units/ml Inj SC SCH ×2 (06:21→12:41)
--- NOTE | 2018-02-24 08:17 | CARD ---
APPROVED REPORT Date of service: 02/24/2018 EKG Measurement Heart [id number] ID [id number] <Conclusion> Normal sinus rhythm Left axis deviation Voltage criteria for left ventricular hypertrophy Nonspecific T wave abnormality Prolonged QT Abnormal ECG
[2018-02-24 08:33] VITALS: RESP 20; TEMP 98.1
[2018-02-24] MEDS: Metoprolol Succinate 50 mg XL Tab PO SCH (09:04)
--- NOTE | 2018-02-24 13:03 | CP.PCM.DIS ---
Provider - Provider Date of Admission: 02/22/18 12:17 Attending physician: Golden Lee MD Consults: Cardiology: Dr Drew Time Spent in preparation of Discharge (in minutes): 35 Diagnosis - Discharge Diagnosis (1) Hypertension Status: Chronic Priority: Medium Comment: -Home meds optimized: Added amlodipine 10mg daily and changed Losartan 50mg TID. (2) DM type 2 (diabetes mellitus, type 2) Status: Chronic Priority: Medium Comment: -C/w Metformin 1000mg BID and Januvia 100mg daily. (3) Abnormal EKG Status: Acute Comment: -Troponin neg x2. -Will f/u as outpatient. (4) Abnormal ultrasound of abdomen Status: Acute Comment: -Sugested pancreatitis. However, asymptomatic and amylase/lipase serum levels were WNL. Pt tolerating PO. Hospital Course - Lab Results Lab Results: Most Recent Lab Values WBC 5.1 K/uL (4.8-10.8) 02/24/18 05:00 RBC 4.72 Mil/uL (3.80-5.20) 02/24/18 05:00 Hgb 14.6 g/dL (12.0-16.0) 02/24/18 05:00 Hct 43.8 % (34.0-47.0) 02/24/18 05:00 MCV 92.6 fl (81.0-99.0) 02/24/18 05:00 MCH 30.9 pg (27.0-31.0) 02/24/18 05:00 MCHC 33.4 g/dL (33.0-37.0) 02/24/18 05:00 RDW 15.0 % (11.5-14.5) H 02/24/18 05:00 Plt Count 169 K/uL (130-400) 02/24/18 05:00 MPV 10.3 fl (7.2-11.7) 02/24/18 05:00 Neut % (Auto) 60.1 % (50.0-75.0) 02/24/18 05:00 Lymph % (Auto) 28.1 % (20.0-40.0) 02/24/18 05:00 Dillon % (Auto) 7.8 % (0.0-10.0) 02/24/18 05:00 Eos % (Auto) 3.5 % (0.0-4.0) 02/24/18 05:00 Baso % (Auto) 0.5 % (0.0-2.0) 02/24/18 05:00 Neut # (Auto) 3.1 K/uL (1.8-7.0) 02/24/18 05:00 Lymph # (Auto) 1.4 K/uL (1.0-4.3) 02/24/18 05:00 Dillon # (Auto) 0.4 K/uL (0.0-0.8) 02/24/18 05:00 Eos # (Auto) 0.2 K/uL (0.0-0.7) 02/24/18 05:00 Baso # (Auto) 0.0 K/uL (0.0-0.2) 02/24/18 05:00 Sodium 139 mmol/l (132-148) 02/24/18 05:00 Potassium 4.2 MMOL/L (3.6-5.0) 02/24/18 05:00 Chloride 105 mmol/L (98-107) 02/24/18 05:00 Carbon Dioxide 27 mmol/L (22-30) 02/24/18 05:00 Anion Gap 11 (10-20) 02/24/18 05:00 BUN 17 mg/dl (7-17) 02/24/18 05:00 Creatinine 0.7 mg/dl (0.7-1.2) 02/24/18 05:00 Est GFR ( Amer) > 60 02/24/18 05:00 Est GFR (Non-Af Amer) > 60 02/24/18 05:00 POC Glucose (mg/dL) 100 mg/dL (65-110) 02/24/18 12:33 Random Glucose 173 mg/dL (65-105) H 02/24/18 05:00 Hemoglobin A1c 7.5 % (4.2-6.5) H D 02/23/18 04:56 Calcium 9.5 mg/dL (8.4-10.2) 02/24/18 05:00 Phosphorus 4.7 mg/dl (2.5-4.5) H 02/24/18 05:00 Magnesium 1.7 MG/DL (1.6-2.3) 02/24/18 05:00 Total Bilirubin 0.8 mg/dl (0.2-1.3) 02/24/18 05:00 AST 32 U/L (14-36) 02/24/18 05:00 ALT 99 U/L (9-52) H D 02/24/18 05:00 Alkaline Phosphatase 103 U/L (38-126) 02/24/18 05:00 Troponin I < 0.0120 ng/mL (0.00-0.120) 02/23/18 04:56 Total Protein 6.9 G/DL (6.3-8.2) 02/24/18 05:00 Albumin 4.1 g/dL (3.5-5.0) 02/24/18 05:00 Globulin 2.8 gm/dL (2.2-3.9) 02/24/18 05:00 Albumin/Globulin Ratio 1.5 (1.0-2.1) 02/24/18 05:00 Triglycerides 124 mg/DL (0-149) D 02/23/18 04:56 Cholesterol 174 mg/dL (0-199) 02/23/18 04:56 LDL Cholesterol Direct 52 mg/dL (0-129) 02/23/18 04:56 HDL Cholesterol 59 MG/DL (30-70) 02/23/18 04:56 Amylase 79 U/L (30-110) 02/23/18 17:51 Lipase 116 U/L (23-300) 02/23/18 17:51 Hepatitis A IgM Ab Negative (NEGATIVE) 02/23/18 12:09 Hep Bs Antigen Negative (NEGATIVE) 02/23/18 12:09 Hep Bs Antibody Positive (NEGATIVE) 02/23/18 12:09 Hep B Core IgM Ab Negative (NEGATIVE) 02/23/18 12:09 Hepatitis C Antibody Negative (NEGATIVE) 02/23/18 12:09 - Hospital Course Hospital Course: 57 y/o F with a PMHx of DM2 and HTN was admitted due to severe headache, lightheadedness, elevated BP and abnormality in EKG. During hospitalization, pt was evaluated by certified pharmacist assistant, Troponins neg x3. BP therapy was optimized. Headache improved. Pt was afebrile, tolerated PO during whole admission. Labs showed transaminitis, hep panel B and C were unremarkable. US showed hepatosteatosis and suggested pancreatitis. Amylase and Lipase lever were ENL. Pt asymptomatic will d/c home with instruction to continue management as outpatient with Dr Lee and Rajendra. - Date & Time of H&P Date of H&P: 02/22/18 Time of H&P: 14:30 Discharge Exam - Head Exam Head Exam: NORMAL INSPECTION - Eye Exam Eye Exam: EOMI, Normal appearance - Neck Exam Neck exam: Full Rom - Respiratory Exam Respiratory Exam: Clear to PA & Lateral, NORMAL BREATHING PATTERN - Cardiovascular Exam Cardiovascular Exam: REGULAR RHYTHM, +S1, +S2 - GI/Abdominal Exam GI & Abdominal Exam: Normal Bowel Sounds, Unremarkable. absent: Soft, Tenderness - Extremities Exam Extremities exam: full ROM - Neurological Exam Neurological exam: Alert, Oriented x3 Discharge Plan - Discharge Medications Prescriptions: amLODIPine [Norvasc] 10 mg PO DAILY #30 tab hydrALAZINE [Apresoline] 50 mg PO TID #90 tab Losartan [Cozaar] 100 mg PO DAILY #30 tab MetFORMIN [glucoPHAGE] 1,000 mg PO BID #30 tab Metoprolol Succinate XL [Toprol XL] 50 mg PO DAILY #30 tab SITagliptin [Januvia] 100 mg PO DAILY #30 tab - Follow Up Plan Condition: FAIR Disposition: HOME/ ROUTINE Instructions: High Blood Pressure (DC), Diabetes Type 2 (DC) Referrals: Goldy Drew MD [Staff Provider] - Golden Lee MD [Staff Provider] -
[2018-02-24 13:19] VITALS: BP 135/85; PULSE 77; O2SAT 97
--- NOTE | 2018-02-24 16:23 | PN ---
Copied To: Goldy Drew MD Attending MD: Goldy Drew MD DATE: 02/24/2018 SUBJECTIVE: The patient denies any chest pain or abdominal pain. She denies any headache. PHYSICAL EXAMINATION: VITAL SIGNS: Blood pressure 144/89, heart rate 81, temperature 98.1, and respirations 20. HEENT: Normocephalic. CHEST: Clear. HEART: S1 and S2 regular. EXTREMITIES: No edema. LABORATORY DATA: Today's SMA-7: Sodium 139, potassium 4.2, chloride 105, CO2 of 27, glucose 173, BUN 17, and creatinine 0.7. Today's hemoglobin and hematocrit 14.6 and 43.8. White count and platelet count are within normal limit. Chest CT scan was performed yesterday and impression is no pulmonary mass, slight infiltrate of the liver, no other significant abnormality. Repeat 12-lead EKG yesterday revealed LVH, nonspecific lateral T-wave changes. ASSESSMENT: 1. Uncontrolled hypertension. 2. Uncontrolled diabetes mellitus. 3. Abnormal electrocardiogram with evidence of left ventricular hypertrophy and nonspecific lateral T-wave changes. 4. Fatty liver. RECOMMENDATIONS: Continue Cozaar 100 mg once a day, increase hydralazine to 50 mg t.i.d., continue Glucophage at 1 g twice a day, Norvasc 10 mg once a day, Toprol XL 50 mg once a day. The patient was recommended that if she has any recurrence of chest pain, then cardiac catheterization should be considered. The patient will follow up upon discharge with Dr. Lee. Goldy Drew MD
== END 2018-02-24 15:16 | disposition home or self-care (01) ==
LOC: H.ER 10:12 → H.ERHOLD 12:17 → H.TEL 15:34
PROVIDERS: ADMIT Family Medicine; ATTEND Family Medicine
DX: I10 Essential (primary) hypertension (principal); I25.10 Atherosclerotic heart disease of native coronary artery without angina pectoris; R51 Headache; E11.65 Type 2 diabetes mellitus with hyperglycemia; J45.909 Unspecified asthma, uncomplicated; M19.90 Unspecified osteoarthritis, unspecified site; Z79.84 Long term (current) use of oral hypoglycemic drugs; Z96.653 Presence of artificial knee joint, bilateral
CPT/HCPCS: 36415; 71046; 71250; 76700; 80053; 80061; 82150; 82948; 83036; 83690; 83735; 84100; 84484; 85025; 85027; 86706; 86803; 93005; 99285; G0378